=== PATIENT | female | born 1940 | race Caucasian/White ===

== ENCOUNTER 2017-03-24 09:29 | Emergency (ER) | payer MEDICARE, OTHER ==
--- NOTE | 2017-03-24 09:41 | ED ---
General Adult HPI - General Chief complaint: Head Injury Stated complaint: Fall 03/09 Time Seen by Provider: 03/24/17 09:41 Source: patient, RN notes reviewed, old records reviewed Mode of arrival: ambulatory Limitations: no limitations - History of Present Illness Initial comments: This is a 76-year-old female ER for reevaluation regarding headache. Patient has episodic headache the last 3 days, did have a fall about a week ago. Concern for head injury. No nausea vomiting no modifying factors for symptoms. Patient is not taking Motrin or Tylenol. No dizziness lightheadedness or weakness. No focal neurological deficit. - Related Data Home Medications Medication Instructions Recorded Confirmed Atorvastatin Calcium [Lipitor] 10 mg PO HS 11/11/15 03/24/17 Lisinopril [Prinivil] 10 mg PO BID 11/11/15 03/24/17 Thyroid Extract 90 mg PO DAILY 11/11/15 03/24/17 Biotin 5 mg PO DAILY 11/12/15 03/24/17 Cholecalciferol [Vitamin D3] 1,000 unit PO DAILY 11/12/15 03/24/17 Allergies Allergy/AdvReac Type Severity Reaction Status Date / Time clarithromycin [From Biaxin] Allergy Unknown Verified 03/24/17 09:48 Penicillins Allergy Anaphylaxis Verified 03/24/17 09:48 shellfish derived Allergy Anaphylaxis Verified 03/24/17 09:48 Sulfa (Sulfonamide Allergy Anaphylaxis Verified 03/24/17 09:48 Antibiotics) Review of Systems ROS Statement: Those systems with pertinent positive or pertinent negative responses have been documented in the HPI. ROS Other: All systems not noted in ROS Statement are negative. Past Medical History Past Medical History: Hyperlipidemia, Hypertension, Thyroid Disorder Additional Past Medical History / Comment(s): Patient denies any previous CVA or TIA in the past or previous DVT PE History of Any Multi-Drug Resistant Organisms: None Reported Past Surgical History: Orthopedic Surgery Additional Past Surgical History / Comment(s): L rotator cuff Additional Past Anesthesia/Blood Transfusion Reaction / Comment(s): diff. to arouse Past Psychological History: No Psychological Hx Reported Smoking Status: Never smoker Past Alcohol Use History: None Reported Past Drug Use History: None Reported - Past Family History Mother Family Medical History: Cancer General Exam - General Exam Comments Initial Comments: MH of 0, no focal neurological deficit, known nausea Limitations: no limitations General appearance: alert, in no apparent distress Head exam: Present: atraumatic, normocephalic, normal inspection Eye exam: Present: normal appearance, PERRL, EOMI. Absent: scleral icterus, conjunctival injection, periorbital swelling ENT exam: Present: normal exam, mucous membranes moist Neck exam: Present: normal inspection. Absent: tenderness, meningismus, lymphadenopathy Respiratory exam: Present: normal lung sounds bilaterally. Absent: respiratory distress, wheezes, rales, rhonchi, stridor Cardiovascular Exam: Present: regular rate, normal rhythm, normal heart sounds. Absent: systolic murmur, diastolic murmur, rubs, gallop, clicks GI/Abdominal exam: Present: soft, normal bowel sounds. Absent: distended, tenderness, guarding, rebound, rigid Extremities exam: Present: normal inspection, full ROM, normal capillary refill. Absent: tenderness, pedal edema, joint swelling, calf tenderness Back exam: Present: normal inspection Neurological exam: Present: alert, oriented X3, CN II-XII intact Psychiatric exam: Present: normal affect, normal mood Skin exam: Present: warm, dry, intact, normal color. Absent: rash Course Vital Signs 03/24/17 03/24/17 03/24/17 09:30 09:45 10:09 Temperature 96.8 F L Pulse Rate 60 67 Respiratory 16 20 Rate Blood Pressure 207/88 190/89 179/73 O2 Sat by Pulse 98 99 Oximetry - Reevaluation(s) Reevaluation #1: 03/24/17 11:37 Symptoms resolved Medical Decision Making - Medical Decision Making 76 female the ER for evaluation regarding headache, positive headache, patient has high blood pressure about blood pressures improved, patient did have a fall CT is negative. Patient will be discharged home for further blood pressure management - Radiology Data Radiology results: report reviewed (CT brain is negative for acute disease), image reviewed Disposition Clinical Impression: Closed head injury, Hypertensive urgency, Headache Disposition: HOME SELF-CARE Condition: Good Instructions: Acute Headache (ED), Hypertension (ED) Referrals: Naveed Viera MD [Primary Care Provider] - 1-2 days
[2017-03-24] MEDS ORDERED: PROCHLORPERAZINE 5 MG TAB PO STA (09:45)
[2017-03-24] MEDS ORDERED: cloNIDine HCL 0.2 MG TAB PO STA (09:45)
[2017-03-24] MEDS ORDERED: KETOROLAC 60 MG/2 ML VIAL IM STA (09:45)
--- NOTE | 2017-03-24 10:35 | CT ---
EXAMINATION TYPE: CT brain wo con DATE OF EXAM: 03/24/2017 COMPARISON: 11/12/2015 HISTORY: 76-year-old female headache, pt states she fell 3 weeks ago hitting front of head TECHNIQUE: Examination was done in axial plane without intravenous contrast. Coronal and sagittal r econstructions performed. CT DLP: 999.8 mGycm Automated exposure control for dose reduction was used. FINDINGS: There is no evidence of acute intracranial hemorrhage, acute ischemic changes, mass, mass-effect, or extra-axial fluid collection. There is no effacement of cerebral sulci or basal subarachnoid cister ns. There is no hydrocephalus. There is no midline shift. Esteves-white matter distinction is preserv ed. Mild patchy white matter hypodensities. Paranasal sinuses and mastoid air cells are well pneumatized. Orbits and globes are intact. No calvar ial fracture. IMPRESSION: No acute intracranial abnormality seen. Mild changes of chronic small vessel ischemic disease.
[2017-03-24 12:06] VITALS: BP 98/55; PULSE 73; RESP 14; TEMP 98.5
== END 2017-03-24 12:10 | disposition home or self-care (01) ==
LOC: EC 09:29
DX: S09.90XA Unspecified injury of head, initial encounter (principal); I16.0 Hypertensive urgency; R51 Headache; I10 Essential (primary) hypertension; E78.5 Hyperlipidemia, unspecified; E07.9 Disorder of thyroid, unspecified; Z79.899 Other long term (current) drug therapy; Z88.0 Allergy status to penicillin; Z88.1 Allergy status to other antibiotic agents; Z88.2 Allergy status to sulfonamides; Z91.013 Allergy to seafood; Z53.20 Procedure and treatment not carried out because of patient's decision for unspecified reasons; W18.39XA Other fall on same level, initial encounter
CPT/HCPCS: 70450; 99284

== ENCOUNTER 2019-03-06 08:33 | Day surgery (SDC) | payer MEDICARE, OTHER ==
[2019-03-04 12:39] VITALS: BMI 34.1
[~2019-03-06 08:33] MED LIST: LACTATED RINGERS 1,000 ML IV SCH; LIDOCAINE 1% 20 ML VIAL (10MG/ML) FOR IV START INTRADERMA PRN
[2019-03-06 09:09] VITALS: TEMP 97.3
[2019-03-06] MEDS ORDERED: LIDOCAINE 1% INJ 10MG/ML (20 ML MDV) ONE (09:19)
[2019-03-06] MEDS ORDERED: PROPOFOL 10 MG/ML 20 ML VIAL IV ONE (09:19)
--- NOTE | 2019-03-06 09:38 | P.PCN ---
Date of Procedure: 03/06/19 Procedure(s) Performed: BRIEF HISTORY: Patient is a 78-year-old, pleasant, female, scheduled for an upper endoscopy as a part of evaluation of epigastric fullness, and excessive belching for the last several years duration. She denies any heartburn. She was tried on various proton pump inhibitors in the past with no help. Presently and diet modification with some improvement in her symptoms.. PROCEDURE PERFORMED: Esophagogastroduodenoscopy with biopsy. PREOPERATIVE DIAGNOSIS: Epigastric fullness and excessive belching. IV sedation per anesthesia. PROCEDURE: After informed consent was obtained, the patient was brought into the endoscopy unit. IV sedation was administered by Anesthesia under continuous monitoring. Initially the Olympus GIF-140 video endoscope was inserted into the mouth. Esophagus intubated with moderate to severe difficulty secondary to cricopharyngeal dysfunction. It was gradually advanced into the stomach and duodenum and carefully examined. The bulb and the second part of the duodenum appeared normal. The scope at this time was withdrawn to the stomach, adequately insufflated with air, and upon careful examination, mucosa of the antrum had mild gastritis and biopsies were done from this area. The, body, cardia and the fundus appeared normal. Small gastric polyps were noted in the proximal body of the stomach which were also biopsied. The scope was then withdrawn into the esophagus. Small sliding type hiatal hernia noted. The GE junction was located at 39 cm from the incisors. The esophagus appeared normal. There were no erosions or ulcerations seen and the patient tolerated the procedure well. IMPRESSION: 1. Small hiatal hernia with no evidence of esophagitis or Camp's esophagus. 2. Mild gastritis and small gastric polyps. 3. Cricopharyngeal dysfunction RECOMMENDATIONS: The findings of this examination were discussed with the patient as well as a family. She will follow with the biopsy results. She was advised to continue with diet modification, small frequent meals and use [id number] H2 blockers as needed..
[2019-03-06 09:56] VITALS: BP 151/76; PULSE 56; RESP 18
== END 2019-03-06 10:25 | disposition home or self-care (01) ==
LOC: ORWHC2ENDO 08:33
PROVIDERS: ATTEND Internal Medicine Gastroenterology
DX: K29.50 Unspecified chronic gastritis without bleeding (principal); K44.9 Diaphragmatic hernia without obstruction or gangrene; K31.7 Polyp of stomach and duodenum; K22.8 Other specified diseases of esophagus; I10 Essential (primary) hypertension; E78.5 Hyperlipidemia, unspecified; M19.90 Unspecified osteoarthritis, unspecified site; K21.9 Gastro-esophageal reflux disease without esophagitis; Z79.890 Hormone replacement therapy; Z79.899 Other long term (current) drug therapy; Z88.1 Allergy status to other antibiotic agents; Z88.0 Allergy status to penicillin; Z88.2 Allergy status to sulfonamides; Z91.013 Allergy to seafood
CPT/HCPCS: 88305; 43239; J2001; J2704

== ENCOUNTER 2020-11-11 23:23 | Emergency (ER) | payer MEDICARE ==
--- NOTE | 2020-11-12 01:28 | ED ---
General Adult HPI - General Chief complaint: Upper Respiratory Infection Stated complaint: Weakness,Covid exposure Source: patient, RN notes reviewed Mode of arrival: ambulatory Limitations: no limitations - History of Present Illness Initial comments: Patient is a 80-year-old female that presents emergency department complaining of headache and general body aches. She did note that her tested positive and wasn't being admitted to the hospital today. She wanted to get tested for Covid just to make sure. She was in no apparent distress pain. She denied any chest pain shortness of breath nausea vomiting diarrhea constipation fever fatigue chills. - Related Data Home Medications Medication Instructions Recorded Confirmed Atorvastatin Calcium [Lipitor] 10 mg PO MOTUWETHFR 11/11/15 03/06/19 Biotin 10,000 mcg PO SUTUTHSA 03/04/19 03/06/19 Cholecalciferol [Vitamin D3 (25 5,000 unit PO DAILY 03/04/19 03/06/19 Mcg = 1000 Iu)] Levothyroxine Sodium 100 mcg PO DAILY 03/04/19 03/06/19 lisinopriL 20 mg PO BID 03/04/19 03/06/19 Allergies Allergy/AdvReac Type Severity Reaction Status Date / Time clarithromycin [From Biaxin] Allergy Unknown Verified 11/12/20 00:21 Penicillins Allergy Anaphylaxis Verified 11/12/20 00:21 shellfish derived Allergy Anaphylaxis Verified 11/12/20 00:21 Sulfa (Sulfonamide Allergy Anaphylaxis Verified 11/12/20 00:21 Antibiotics) Review of Systems ROS Statement: Those systems with pertinent positive or pertinent negative responses have been documented in the HPI. ROS Other: All systems not noted in ROS Statement are negative. Past Medical History Past Medical History: GERD/Reflux, Hyperlipidemia, Hypertension, Osteoarthritis (OA), Thyroid Disorder Additional Past Medical History / Comment(s): Patient denies any previous CVA or TIA in the past or previous DVT PE History of Any Multi-Drug Resistant Organisms: None Reported Past Surgical History: Breast Surgery, Orthopedic Surgery Additional Past Surgical History / Comment(s): L rotator cuff, cysts removed from right breast. Past Anesthesia/Blood Transfusion Reactions: Postoperative Nausea & Vomiting (PONV) Additional Past Anesthesia/Blood Transfusion Reaction / Comment(s): Hx difficult to arouse. Past Psychological History: No Psychological Hx Reported Smoking Status: Never smoker Past Alcohol Use History: None Reported Past Drug Use History: None Reported - Past Family History Mother Family Medical History: Cancer General Exam Limitations: no limitations General appearance: alert, in no apparent distress, obese Head exam: Present: atraumatic, normocephalic, normal inspection Eye exam: Present: normal appearance, PERRL, EOMI. Absent: scleral icterus, conjunctival injection, periorbital swelling Neck exam: Present: normal inspection. Absent: tenderness, meningismus, lymphadenopathy Respiratory exam: Present: normal lung sounds bilaterally. Absent: respiratory distress, wheezes, rales, rhonchi, stridor Cardiovascular Exam: Present: regular rate, normal rhythm, normal heart sounds. Absent: systolic murmur, diastolic murmur, rubs, gallop, clicks GI/Abdominal exam: Present: soft, normal bowel sounds. Absent: distended, tenderness, guarding, rebound, rigid Extremities exam: Present: normal inspection, full ROM, normal capillary refill. Absent: tenderness, pedal edema, joint swelling, calf tenderness Neurological exam: Present: alert, oriented X3, CN II-XII intact Psychiatric exam: Present: normal affect, normal mood Skin exam: Present: warm, dry, intact, normal color. Absent: rash Course Vital Signs 11/12/20 00:19 Temperature 98.7 F Pulse Rate 83 Respiratory 20 Rate Blood Pressure 140/86 O2 Sat by Pulse 93 L Oximetry Medical Decision Making - Medical Decision Making 72-year-old female complaining of headache and general aches, exposed to Covid on 11/06/20 is getting admitted to hospital today. Covid test ordered, Covid test was positive. Case discussed with Dr. Tamayo, patient can discharge home with conservative management. Crit return parameters. - Lab Data Lab Results 11/12/20 Range/Units 00:32 Coronavirus (PCR) Detected A (Not Detectd) Disposition Clinical Impression: COVID-19 Disposition: HOME SELF-CARE Condition: Stable Instructions (If sedation given, give patient instructions): Upper Respiratory Infection (ED), Coronavirus Disease 2019 (COVID-19) Additional Instructions: Please return to the Emergency Department if symptoms worsen or any other concerns. These follow-up with primary care in 3-5 days. Per CBC guidelines quarantine for 10-14 days from onset of symptoms. Take [id number] anti-inflammatories for symptomatically control fever and aches and pains. Increase fluids and rest. If symptoms worsen please return to the emergency room. Is patient prescribed a controlled substance at d/c from ED?: No Referrals: Naveed Viera MD [Primary Care Provider] - 1-2 days Time of Disposition: 01:28
[2020-11-12 01:35] VITALS: BP 141/65; PULSE 81; RESP 22; TEMP 98.1
== END 2020-11-12 01:33 | disposition home or self-care (01) ==
LOC: EC 23:23
DX: U07.1 COVID-19 (principal); I10 Essential (primary) hypertension; M19.90 Unspecified osteoarthritis, unspecified site; K21.9 Gastro-esophageal reflux disease without esophagitis; E78.5 Hyperlipidemia, unspecified; Z88.0 Allergy status to penicillin
CPT/HCPCS: 87635; 99284

== ENCOUNTER → 2021-03-10 | Outpatient (CLI) | payer MEDICARE ==
--- NOTE | 2021-03-10 17:00 | ECHOF ---
Referral Reason:R60.9 edema MEASUREMENTS -------- HEIGHT: 160.0 cm WEIGHT: 92.5 kg BP: IVSd: 1.2 cm (0.6 - 1.1) LVIDd: 4.1 cm (3.9 - 5.3) LVPWd: 1.3 cm (0.6 - 1.1) IVSs: 1.6 cm LVIDs: 2.9 cm LVPWs: 2.0 cm LAESV Index (A-L): 27.00 ml/m Ao Diam: 2.4 cm (2.0 - 3.7) AV Cusp: 1.9 cm (1.5 - 2.6) LA Diam: 3.4 cm (2.7 - 3.8) MV EXCURSION: 15.279 mm (> 18.000) MV EF SLOPE: 57 mm/s (70 - 150) EPSS: 0.4 cm MV E Johnny: 0.29 m/s MV DecT: 273 ms MV A Johnny: 0.79 m/s MV E/A Ratio: 0.37 RAP: 5.00 mmHg RVSP: 24.98 mmHg FINDINGS -------- Sinus rhythm. This was a technically good study. LV size, wall thickness and systolic function are normal, with an EF greater than 55%. The left johnathan tricular size is normal. The right ventricle is normal in size. The left atrial size is normal. The right atrial size is normal. The aortic valve is trileaflet, and appears structurally normal. No aortic stenosis or regurgitation. Mild mitral regurgitation is present. Mild tricuspid regurgitation present. Right ventricular systolic pressure is normal at < 35 mmHg. There is no pulmonic regurgitation present. There is no pericardial effusion. CONCLUSIONS -------- 1. LV size, wall thickness and systolic function are normal, with an EF greater than 55%. 2. The left ventricular size is normal. 3. The right ventricle is normal in size. 4. The left atrial size is normal. 5. The right atrial size is normal. 6. The aortic valve is trileaflet, and appears structurally normal. No aortic stenosis or regurgitati on. 7. Mild mitral regurgitation is present. 8. Mild tricuspid regurgitation present. 9. Right ventricular systolic pressure is normal at < 35 mmHg. 10. There is no pulmonic regurgitation present. 11. There is no pericardial effusion. IMMUNOCHEMIST: Maria Elena Beyer RDCS
== END | disposition home or self-care (01) ==
LOC: RADECHMAIN 11:08
PROVIDERS: ATTEND Internal Medicine Geriatric Medicine
DX: I08.1 Rheumatic disorders of both mitral and tricuspid valves (principal)
CPT/HCPCS: 93306

== ENCOUNTER → 2021-06-15 | Outpatient (CLI) | payer MEDICARE ==
--- NOTE | 2021-06-15 12:44 | FL ---
EXAMINATION TYPE: FL barium swallow DATE OF EXAM: 06/15/2021 CLINICAL HISTORY: Dysphasia. Food getting stuck in upper esophagus for years more severe currently. TECHNIQUE: A double contrast esophagram is performed utilizing air and barium. A total of 27 second s of fluoroscopic time was utilized during procedure and 52 images obtained COMPARISON: Prior esophagram August 01, 2016 FINDINGS: The esophagus shows some dysmotility with abnormal secondary contractions. Stable prominenc e of the cardiac cricopharyngeal muscle. No diverticulum. Small size sliding-type hiatal hernia. No f ocal stricture . No significant gastroesophageal reflux was seen during real time performance of this study. IMPRESSION: New mild esophageal dysmotility. No obstructing mass or stricture identified. Small slid ing-type hiatal hernia also noted on today's study.
== END | disposition home or self-care (01) ==
LOC: RADUSWWP 09:49
PROVIDERS: ATTEND Otolaryngology
DX: K22.4 Dyskinesia of esophagus (principal); K44.9 Diaphragmatic hernia without obstruction or gangrene
CPT/HCPCS: 74220

== ENCOUNTER → 2022-03-03 | Outpatient (CLI) | payer MEDICARE ==
[2022-03-03 12:09] LABS: Partial Thromboplastin Time 25.7 sec (22.0-30.0); Prothrombin Time 10.5 sec (9.0-12.0)
[2022-03-03 17:48] LABS: MCH 30.6 pg (27.0-32.0); MCHC 31.8 g/dL (32.0-37.0); MCV 96.1 fL (80.0-97.0); Mean Platelet Volume 10.3 fL (9.5-12.2); NRBC Per 100 WBC 0 /100 WBCS (0.0-0.0); Platelet Count 170 X 10*3/uL (140-440); RBC 4.58 X 10*6/uL (4.10-5.20); RDW 12.4 % (11.5-14.5); WBC 4.26 X 10*3/uL (4.50-10.00)
[2022-03-03 17:58] LABS: African American GFR (CKD) 73.6 (60.0-200.0); Albumin 4.3 g/dL (3.8-4.9); Albumin/Globulin Ratio 2.41 (1.60-3.17); BUN/Creat Ratio 14.17 Ratio (12.00-20.00); Blood Urea Nitrogen 12.3 mg/dL (9.0-27.0); Calcium 9.9 mg/dL (8.7-10.3); Carbon Dioxide 26.5 mmol/L (20.0-27.5); Globulin 1.8 g/dL (1.6-3.3); Non-African American GFR(CKD) 63.5 (60.0-200.0); Potassium 4.8 mmol/L (3.5-5.5); Total Bilirubin 0.5 mg/dL (0.30-1.20); Total Protein 6.1 g/dL (6.2-8.2)
[2022-03-03 19:44] LABS: Appearance,Urine Clear (Clear); Bilirubin,Urine Negative (Negative); Blood,Urine Negative (Negative); Color,Urine Yellow (Yellow); Ketones,Urine Negative (Negative); Nitrite,Urine Negative (Negative); PH, Urine 6.5 (5.0-8.0); Specific Gravity,Urine 1.005 (1.001-1.030); Urobilinogen,Urine 0.2 (0.2,1.0)
== END | disposition home or self-care (01) ==
LOC: LABPAT 10:53
PROVIDERS: ATTEND Orthopaedic Surgery
DX: Z01.818 Encounter for other preprocedural examination (principal); I49.1 Atrial premature depolarization; R94.31 Abnormal electrocardiogram [ECG] [EKG]
CPT/HCPCS: 80053; 81003; 85027; 85610; 85730; 87070; 93005

== ENCOUNTER 2022-03-29 09:13 | Day surgery (SDC) | payer MEDICARE ==
[~2022-03-29 09:13] MED LIST changes: +ACETAMINOPHEN TAB 500 MG TAB PO PRN; +DEXAMETHASONE SOD PHOSPHATE 4 MG/ML 1 ML VIAL IV ONE; +GABAPENTIN 300 MG CAP PO PRN; -LACTATED RINGERS 1,000 ML IV SCH; -LIDOCAINE 1% 20 ML VIAL (10MG/ML) FOR IV START INTRADERMA PRN; +MELOXICAM 7.5 MG TAB PO PRN; +ONDANSETRON 4 MG/2 ML VIAL IVP ONE; +TRANEXAMIC ACID IN NACL,ISO-OS 1,000 MG in SALINE 1 100ML.BAG IVPB PRN
[2022-03-29] MEDS: LACTATED RINGERS 1,000 ML IV SCH (09:55)
[2022-03-29] MEDS ORDERED: MIDAZOLAM 2 MG/2 ML VIAL IV ONE (10:03)
[2022-03-29] MEDS ORDERED: fentaNYL (PF) 50 MCG/ML 2 ML AMP IV ONE (10:03)
--- NOTE | 2022-03-29 10:56 | P.ANPRN ---
Procedure Note - Anesthesia - Nerve Block Performed Left Adductor Canal Infusion Time Out Performed: Yes (1003) Date of Procedure: 03/29/22 Procedure Start Time: 10:04 Procedure Stop Time: 10:11 Location of Patient: PreOp Indication: Acute Post-Operative Pain, Requested by Surgeon Specifically requested for management of pain by DrCleopatra: Norman Martínez Sedation Type: Sedate with meaningful contact maintained Preparation: Sterile Prep, Sterile Dressing Position: Supine Catheter Depth at Skin (cm): 8 Catheter: Indwelling Needle Types: Pajunk Needle Gauge: Other (see comment) (16) Ultrasound used to visualize needle placement: Yes Ultrasound used to observe medication spread: Yes Injectate: 0.5% Ropivacaine (see comment for volume) (30cc) Blood Aspirated: No Pain Paresthesia on Injection Noted: No Resistance on Injection: Normal Image Stored and Saved: Yes Events: Uneventful and Well Tolerated
--- NOTE | 2022-03-29 10:58 | P.ANPRN ---
Procedure Note - Anesthesia - Nerve Block Performed Left iPack Single Time Out Performed: Yes (1003) Date of Procedure: 03/29/22 Procedure Start Time: 10:12 Procedure Stop Time: :17 Location of Patient: PreOp Indication: Acute Post-Operative Pain, Requested by Surgeon Specifically requested for management of pain by DrCleopatra: Norman Martínez Sedation Type: Sedate with meaningful contact maintained Preparation: Sterile Prep Position: Supine Catheter: None Needle Types: Pajunk Needle Gauge: 21 Ultrasound used to visualize needle placement: Yes Ultrasound used to observe medication spread: Yes Injectate: 0.5% Ropivacaine (see comment for volume) (15cc +5cc nacl pf) Blood Aspirated: No Pain Paresthesia on Injection Noted: No Resistance on Injection: Normal Image Stored and Saved: Yes Events: Uneventful and Well Tolerated
[2022-03-29] MEDS ORDERED: MIDAZOLAM 2 MG/2 ML VIAL ONE (11:07)
[2022-03-29] MEDS ORDERED: PHENYLEPHRINE-0.9% NACL SYG 1,000 MCG/10 ML SYRINGE ONE (11:07)
[2022-03-29] MEDS ORDERED: ROPIVACAINE 5 MG/ML 30 ML VIAL ONE (11:07)
[2022-03-29] MEDS ORDERED: fentaNYL (PF) 50 MCG/ML 2 ML AMP ONE (11:07)
[2022-03-29] MEDS ORDERED: SODIUM CHLORIDE 0.9% (PF) 10 ML VIAL ONE (11:07)
[2022-03-29] MEDS ORDERED: PROPOFOL 10 MG/ML 20 ML VIAL IV ONE (11:07)
[2022-03-29] MEDS ORDERED: TRANEXAMIC ACID IN NACL,ISO-OS 1,000 MG/100 ML BAG ONE (11:07)
--- NOTE | 2022-03-29 12:42 | P.OP ---
Date of Procedure: 03/29/22 Preoperative Diagnosis: Severe osteoarthritis left knee Postoperative Diagnosis: Severe osteoarthritis left knee Procedure(s) Performed: Left total knee arthroplasty Implants: [employer] II CR Oxinium cruciate retaining femoral component size 6, left [employer] nonporous tibial baseplate size 4, left [employer] II, XLPE Deep Dished articular insert, size 9 mm, Size 3- 4, left [employer] Aleah II resurfacing patellar component, oval, 32 mm All components were cemented using Simplex P bone cement The articulation is Oxinium on polyethylene Anesthesia: spinal Surgeon: Norman Martínez Beam Worker #1: Bhargav Zaldivar Estimated Blood Loss (ml): 100 Pathology: other (Bone and cartilage) Condition: stable Disposition: PACU Indications for Procedure: After failure of conservative treatment we discussed the surgical and nonsurgical treatment options at length. Patient wishes to proceed with a total knee arthroplasty. Complications specific to this procedure were discussed at length, including but not limited to infection, bleeding, stiffness, and nerve injury. Covid-19 was also discussed at length with the patient, and they are aware of the current policies and procedures. The patient was given the option of delaying surgery, but they elect to proceed knowing these risks. Patient is aware of all these complications and informed consent was obtained Operative Findings: The operative findings are consistent with severe osteoarthritis of the left knee Description of Procedure: Patient was seen in the preoperative area and the consent was reviewed and the operative site was marked with a skin marker. The patient verified the procedure and the operative site. An adductor canal pain catheter and an iPACK block was placed by anesthesia in the preoperative area. The patient was then brought to the operating room and given preoperative antibiotics intravenously. A gram of transexamic acid was given intravenously. A spinal anesthetic was administered by the anesthesia department. A tourniquet was placed on the upper thigh and the lower extremity was prepped with chlorhexidine and draped in usual sterile fashion. A universal timeout was then performed which confirmed the patient's name, surgical site, ALLERGIES, and consent. The lower extremity was then exsanguinated and tourniquet was inflated to 250 mmHg. A standard anterior midline approach to the knee was performed. The skin and subcutaneous tissue were sharply dissected down to the patellar tendon. A medial parapatellar arthrotomy was then performed. The knee was then extended, the patellar was everted, and the knee was again flexed. The infra-patellar fat pad was removed in order to enhance exposure. The anterior horns of both menisci were excised, and a release was performed to the posterior medial aspect of the knee. On gross visual inspection, there was complete loss of articular cartilage in the medial and patellofemoral joint spaces. There was also significant cartilage damage in the lateral compartment. There were multiple periarticular osteophytes globally about the knee which were then removed with a Ronguer. The femoral canal was then opened with the 9.5 mm intramedullary drill. The 8 mm intramedullary brynn was then inserted into the femoral canal with the distal femoral cutting guide set for 5 of valgus. The distal femoral cutting block was then pinned in place. The intramedullary brynn was then removed, and the distal femur was then cut. The cutting block was then removed and the cut was checked for symmetry. The resected bone was then measured to confirm the appropriate distal femoral resection. Next, the sizing guide was then placed and set for 3 external rotation based off of the epicondylar axis and Whitesides line. Pins were then placed and the drill holes, and the femur was sized with the sizing stylus. The pins were then removed, and the sizing guide was then removed. The spikes of the femoral block was then placed into the predrilled holes, and malleted into place. Two 45 mm pins were then placed into the fixation holes on the cutting block. An priscilla wing was then used to ensure there would be no notching with the anterior cut. The anterior condyles were cut without notching. The anterior chord cut was then performed, followed by the posterior cut, posterior chamfer cut, and the anterior chamfer cut. The collateral ligaments were protected during the entire process. The cutting block was then removed. Any remaining bone and osteophytes were removed from the femur with a Ronguer. The femoral canal was plugged with autologous bone. Attention was then directed to the tibia. The remaining ACL was removed with a Ronguer, and the tibia was then gently subluxed forward with a large bent knee retractor. Any remaining menisci were excised. The posterior lateral corner was cauterized in order to coagulate the lateral geniculate artery. The extra medullary tibial cutting guide was then placed, set for the appropriate rotation, slope, and depth of resection. The proximal tibia cutting guide was then pinned in place. Proximal tibia was then cut and sized. The femoral trial was placed. A narrow saw blade was then used to remove the anterior intracondylar femoral bone. The CR notch trial was then placed. The tibial trial was placed with the appropriate-sized insert. The knee was able to fully extend and flex to 130 and was stable throughout all range of motion. The knee was then extended and the patella was everted. Patella was then measured, and then using an osteotomy guide, the patella was cut at the appropriate level. The patella was then measured and drilled and the patella trial was then placed. The knee was then taken through range of motion with the patella trial and the patella tracked normally using the no thumbs technique. The knee was then extended patella trial was then removed and the patella was everted. Knee was then flexed and lug holes were drilled through the femoral trial and the femoral trial was then removed. The tibial was then re-exposed, and the tibial broach guide was then pinned in place after it was set for the appropriate rotation to allow for the most coverage without overhang. The tibia was then reamed and broached. The cut surfaces of bone were then irrigated with pulsatile lavage. The knee was also irrigated with Irrisept solution. The components were then opened, the cement was mixed, and the components were then cemented in place. The cement was allowed to harden with the knee in full extension. After the cemented hardened, the tourniquet was released and hemostasis was obtained. A second gram of transexamic acid was given intravenously. The knee was again irrigated. The knee was again taken through range of motion and found to be stable throughout all range of motion of 0-130, and the patella tracked normally. The fascia was then closed with 0 Vicryl followed by #2 strata fix suture. The subcutaneous tissue was closed with 3-0 Vicryl and 3-0 strata fix. Exofin glue was used for the skin and placed with the knee in flexion. After the glue had dried, and Optafoam silver impregnated dressing was applied. The patient was then transferred to recovery room in stable condition. The respiratory therapist assistant VICKI Wallis was required due the complexity surgery and the need for a skilled surgical nurse. She assisted in positioning, draping, retraction, and closure of the wound.
[2022-03-29] MEDS ORDERED: IV FLUID CONTINUATION 1,000 ML IV ONE ×3 (13:18)
[2022-03-29] MEDS ORDERED: HYDROcodone/APAP 5-325MG 1 EACH TAB PO PRN (13:33)
[2022-03-29] MEDS ORDERED: hydrOXYzine pamoate 25 MG CAP PO PRN (13:33)
[2022-03-29] MEDS ORDERED: TEMAZEPAM 15 MG CAP PO PRN (13:33)
[2022-03-29] MEDS ORDERED: bisacodyL 10 MG SUPP RECTAL PRN (13:33)
[2022-03-29] MEDS ORDERED: NALOXONE 0.4 MG/ML 1 ML VIAL IV PRN (13:33)
[2022-03-29] MEDS ORDERED: MAGNESIUM HYDROXIDE 2,400 MG/10 ML CUP PO PRN (13:33)
[2022-03-29] MEDS ORDERED: HYDROmorphone 0.5 MG/0.5 ML SYRINGE IVP PRN ×3 (13:33)
[2022-03-29] MEDS ORDERED: ONDANSETRON 4 MG/2 ML VIAL IVP PRN (13:33)
[2022-03-29 13:45] LABS: Glucose,Whole Blood 102 mg/dL (70-110)
--- NOTE | 2022-03-29 13:49 | XR ---
EXAMINATION TYPE: XR knee limited LT DATE OF EXAM: 03/29/2022 CLINICAL HISTORY: Postoperative evaluation Two views of the left knee are submitted. Identified are changes of total knee arthroplasty with fem oral and tibial components appearing well seated. Postsurgical soft tissue changes are noted. Align ment is anatomic.
[2022-03-29] MEDS ORDERED: ROPIVACAINE 0.2%-NS ON-Q PUMP 2 MG/ML EACH MISCELLANE ONE (13:53)
[2022-03-29] MEDS: HYDROmorphone 0.5 MG/0.5 ML SYRINGE IVP PRN ×2 (13:55→14:20)
[2022-03-29] MEDS ORDERED: KETOROLAC 15 MG/ML 1 ML VIAL IVP ONE (13:58)
[2022-03-29] MEDS: SODIUM CHLORIDE 0.9% 1,000 ML IV SCH (15:00)
[2022-03-29] MEDS ORDERED: ATORVASTATIN 10 MG TAB PO SCH ×2 (17:15→21:00)
[2022-03-29] MEDS ORDERED: TOBRAMYCIN 0.3% OPHTH DROPS 5 ML BTL RIGHT EYE SCH (18:00)
[2022-03-29] MEDS: lisinopriL 20 MG TAB PO SCH (20:43)
[2022-03-29] MEDS: FAMOTIDINE 20 MG TAB PO SCH (20:43)
[2022-03-29] MEDS: HYDROcodone/APAP 5-325MG 1 EACH TAB PO PRN (20:44)
[2022-03-29] MEDS ORDERED: SENNOSIDES-DOCUSATE SODIUM 1 EACH TAB PO SCH (21:00)
[2022-03-30] MEDS ORDERED: LEVOTHYROXINE 100 MCG TAB PO SCH (06:30)
[2022-03-30] MEDS: LACTATED RINGERS 1,000 ML IV SCH (07:05)
[2022-03-30] MEDS: HYDROcodone/APAP 5-325MG 1 EACH TAB PO PRN (07:33)
[2022-03-30] MEDS: lisinopriL 20 MG TAB PO SCH (07:34)
[2022-03-30] MEDS: FAMOTIDINE 20 MG TAB PO SCH (07:34)
[2022-03-30 08:10] VITALS: BP 167/74; PULSE 70; RESP 18; TEMP 98.8
[2022-03-30] MEDS ORDERED: OXYBUTYNIN XL 5 MG TAB.ER.24 PO SCH (09:00)
[2022-03-30] MEDS ORDERED: MULTIVITAMINS, THERA 1 EACH TAB PO SCH ×2 (09:00→12:00)
[2022-03-30] MEDS ORDERED: CHOLECALCIFEROL 125 MCG (5000 IU) TABLET PO SCH (09:00)
[2022-03-30] MEDS ORDERED: ASPIRIN 325 MG TAB PO SCH (09:00)
[2022-03-30] MEDS ORDERED: FAMOTIDINE 20 MG TAB PO SCH (09:00)
[2022-03-30] MEDS ORDERED: LORATADINE 10 MG TAB PO SCH (09:00)
[2022-03-30] MEDS: SODIUM CHLORIDE 0.9% 1,000 ML IV SCH (09:16)
[2022-03-30 09:24] LABS: Basophils # (A) 0.01 X 10*3/uL (0.00-0.10); Basophils % (A) 0.1 %; Eosinophils # (A) 0 X 10*3/uL (0.04-0.35); Eosinophils % (A) 0 %; HCT 36.5 % (37.2-46.3); HGB 12.4 g/dL (12.0-15.0); Immature Grans, Automated 0.5 %; Lymphocytes % (A) 14.6 %; MCH 32.1 pg (27.0-32.0); MCV 94.6 fL (80.0-97.0); Mean Platelet Volume 10.6 fL (9.5-12.2); Monocytes # (A) 0.86 X 10*3/uL (0.20-1.00); Monocytes % (A) 10.4 %; NRBC Per 100 WBC 0 /100 WBCS (0.0-0.0); Neutrophils # (A) 6.12 X 10*3/uL (1.80-7.70); Neutrophils % (A) 74.4 %; Platelet Count 150 X 10*3/uL (140-440); RBC 3.86 X 10*6/uL (4.10-5.20); RDW 12.6 % (11.5-14.5); WBC 8.23 X 10*3/uL (4.50-10.00)
--- NOTE | 2022-03-30 09:53 | P.DS ---
Providers Date of admission: 03/29/2022 Expected date of discharge: 03/30/22 Attending physician: Norman Martínez Consults: 03/29/22 13:33 Consult Physician Routine Consulting Provider: Naveed Viera Reason/Comments: Postoperative medical management Do you want consulting provider notified?: Yes Primary care physician: Naveed Viera - Discharge Diagnosis(es) (1) Hypertension Current Visit: Yes Status: Acute (2) Hypothyroidism Current Visit: Yes Status: Acute (3) Hyperlipidemia Current Visit: Yes Status: Acute (4) Left knee pain Current Visit: Yes Status: Acute (5) Osteoarthritis of left knee Current Visit: Yes Status: Acute (6) Status post total left knee replacement Current Visit: Yes Status: Acute Hospital Course: This is a pleasant 81-year-old female who presented with left knee severe osteoarthritis who failed outpatient conservative therapy. She was admitted for a left total knee arthroplasty performed by Dr. Norman Martínez. The patient tolerated the procedure well and did well postoperatively. Her pain has been well-controlled. She has been ambulating with the assistance of a walker. She has some unsteadiness in her gait but feels better with the assistance of a walker. She continues to have an On-Q pain pump intact. She is eating and voiding without difficulty. She feels she is ready for discharge today. She states her daughter will be with her at all times following discharge. Condition on day of discharge stable. Patient will be discharged home. Patient was cleared preoperatively for surgery by Dr. Viera. Patient currently denies any nausea, vomiting, fever, or chills. Patient may shower Optifoam dressing intact. Patient may remove Optifoam dressing in 7 days and shower without a dressing at that time. Patient is encouraged to elevate and apply ice over the left knee for comfort support as needed. She is encouraged to utilize a walker to aid in ambulation. She may weight-bear as tolerated on the left lower extremity with the assistance of a walker. MAPS reviewed yesterday. An "Opiod Start Talking" Form has been signed and placed in the patient's chart. A prescription has been written for Savery 5 mg/325 mg 1-2 tabs every 6 hours as needed for pain, dispensed #32. Patient is also given prescriptions for Senokot-S as needed for constipation, Zofran as needed for nausea, Celebrex 200 mg, and aspirin 325 mg. Patient should take aspirin 325 mg 1 tab by mouth twice a day until completion of the prescription. Prescription medications were sent to the patient's preferred regular pharmacy. Patient's other medical diagnoses include hypertension, hypothyroidism, and hyperlipidemia. Physical Exam Total Knee Arthroplasty: Status post surgical day number 1 Patient is awake, alert, and oriented 3 Vital signs stable Good chest excursion with deep inspiration and expiration No signs or symptoms of DVT; no calf pain Dressing over the left knee is clean, dry, and intact; no erythema, purulence, or signs of infection Patient has full foot and ankle motion without difficulty bilateral lower extremities Dorsiflexion, plantar flexion, and extensor hallucis longus positive sustained bilaterally Neurovascular status left lower extremity intact Capillary refill lower extremity is bilaterally less than 2 seconds Procedures: Left total knee arthroplasty Patient Condition at Discharge: Stable Plan - Discharge Summary Discharge Rx Participant: Yes New Discharge Prescriptions: New Aspirin 325 mg PO BID #60 tab Celecoxib [CeleBREX] 200 mg PO DAILY PRN #30 cap PRN Reason: Pain Ondansetron [Zofran] 4 mg PO Q6HR PRN #30 tab PRN Reason: Nausea HYDROcodone/APAP 5-325MG [Savery 5] 1 - 2 each PO Q6HR PRN #32 tab PRN Reason: Pain Sennosides-Docusate Sodium [Senokot-S] 1 tab PO BID PRN #60 tablet PRN Reason: Constipation No Action Atorvastatin Calcium [Lipitor] 10 mg PO MOTUWETHFR Cholecalciferol [Vitamin D3 (25 Mcg = 1000 Iu)] 5,000 unit PO DAILY Levothyroxine Sodium 100 mcg PO DAILY lisinopriL 20 mg PO BID Tolterodine ER [Detrol LA] 2 mg PO DAILY Cephalexin [Keflex] 500 mg PO Q8HR Tobramycin 0.3% Ophth Soln [Tobrex 0.3% Ophth Soln] 1 drop RIGHT EYE QID Loratadine [Claritin] 10 mg PO DAILY Zinc 50 mg PO DAILY Multivitamins, Thera [Multivitamin (formulary)] 1 tab PO DAILY Famotidine [Pepcid] 20 mg PO BID Ubidecarenone [Co Q-10] 400 mg PO DAILY Discharge Medication List Atorvastatin Calcium [Lipitor] 10 mg PO MOTUWETHFR 11/11/15 [History] Cholecalciferol [Vitamin D3 (25 Mcg = 1000 Iu)] 5,000 unit PO DAILY 03/04/19 [History] Levothyroxine Sodium 100 mcg PO DAILY 03/04/19 [History] lisinopriL 20 mg PO BID 03/04/19 [History] Cephalexin [Keflex] 500 mg PO Q8HR 03/22/22 [History] Famotidine [Pepcid] 20 mg PO BID 03/22/22 [History] Loratadine [Claritin] 10 mg PO DAILY 03/22/22 [History] Multivitamins, Thera [Multivitamin (formulary)] 1 tab PO DAILY 03/22/22 [History] Tobramycin 0.3% Ophth Soln [Tobrex 0.3% Ophth Soln] 1 drop RIGHT EYE QID 03/22/22 [History] Tolterodine ER [Detrol LA] 2 mg PO DAILY 03/22/22 [History] Ubidecarenone [Co Q-10] 400 mg PO DAILY 03/22/22 [History] Zinc 50 mg PO DAILY 03/22/22 [History] Aspirin 325 mg PO BID #60 tab 03/29/22 [Rx] Celecoxib [CeleBREX] 200 mg PO DAILY PRN #30 cap 03/29/22 [Rx] HYDROcodone/APAP 5-325MG [Savery 5] 1 - 2 each PO Q6HR PRN #32 tab 03/29/22 [Rx] Ondansetron [Zofran] 4 mg PO Q6HR PRN #30 tab 03/29/22 [Rx] Sennosides-Docusate Sodium [Senokot-S] 1 tab PO BID PRN #60 tablet 03/29/22 [Rx] Follow up Appointment(s)/Referral(s): [facility] [[facility]] - 1-2 Days ([facility] will call you to schedule your in home physical therapy visits. ) Norman Martínez DO [Doctor of Osteopathic Medicine] - 2 Weeks Activity/Diet/Wound Care/Special Instructions: 1. Patient may shower without a dressing intact over the left knee if the surgical site remains clean and dry over the next 72 hours 2. Patient may elevate and apply ice for comfort support of the left knee as needed 3. Patient is encouraged to use a walker to aid in ambulation as needed 4. Patient may weight-bear as tolerated on the left lower extremity while avoiding excessive activities with the right lower extremity 5. Take medications as prescribed 6. Keep surgical site clean and dry 7. Patient will follow up with Dr. Norman Martínez in 2 weeks for further evaluation at the office; patient may call [facility] at [phone] with any questions or concerns Discharge Disposition: HOME SELF-CARE
--- NOTE | 2022-03-30 14:29 | P.CONS ---
History of Present Illness - Reason for Consult Consult date: 03/30/22 Medical management, postop left knee arthroplasty - History of Present Illness This is a pleasant 81-year-old female who follows with Dr. Viera in the outpatient setting and was admitted under orthopedic services for left knee arthroplasty with Dr. Martínez postop day #1. Patient does have a past medical history hypertension, hyperlipidemia, osteoarthritis, hypothyroidism, gastroesophageal reflux disease. Patient is maintained on blood pressure medication and blood pressures have been controlled and blood medications were already resumed postoperatively and recommend to to continue with current medication regimen and follow-up closely with the memory care provider in the outpatient setting. Patient's postoperative site dressing on the left knee is dry and intact and noted pain pump. Patient reports she has been up and walking and tolerating the pain and will be going home and daughter will be visiting and staying with her and discharge. Patient with an incentive spirometer at the bedside and encourage the patient continue using at least 10 times every hour while awake even in the home setting. Patient reports the passing gas although no bowel movement as of yet and is urinating with no difficulties. Review Of Systems: Constitutional: No fever, no chills, no night sweats. No weight change. No weakness, fatigue or lethargy. No daytime sleepiness. EENT: No headache. No blurred vision or double vision, no loss of vision. No loss of Hearing, no ringing in the ears, no dizziness. No nasal drainage or congestion. No epistaxis. No sore throat. Lungs: No shortness of breath, cough, no sputum production. No wheezing. Cardiovascular: No chest pain, no lower extremity edema. No palpitations. No paroxysmal nocturnal dyspnea. No orthopnea. No lightheadedness or dizziness. No syncopal episodes. Abdominal: No abdominal pain. No nausea, vomiting. No diarrhea. No constipation. No bloody or tarry stools.. No loss of appetite. Genitourinary: No dysuria, increased frequency, urgency. No urinary retention. Musculoskeletal: No myalgias. No muscle weakness, no gait dysfunction, no frequent falls. No back pain. No neck pain. Reports some left knee pain that is manageable Integumentary: No wounds, no lesions. No rash or pruritus. No unusual bruising. No change in hair or nails. Neurologic: No aphasia. No facial droop. No change in mentation. No head injury. No headache. No paralysis. No paresthesia. Psychiatric: No depression. No anxiety. No mood swings. Endocrine: No abnormal blood sugars. No weight change. No excessive sweating or thirst. No cold intolerance. PHYSICAL EXAMINATION: GENERAL: The patient is alert and oriented x4, Well developed, well nourished. HEENT: Pupils are round and equally reacting to light. EOMI. no scleral icterus. No conjunctival pallor. Normocephalic, atraumatic. No pharyngeal erythema. No thyromegaly. CARDIOVASCULAR: S1 and S2 muffled PULMONARY: diminished breath sounds bilaterally with no wheezing or rhonchi note d. ABDOMEN: soft. Nontender on exam. obese. non-distended, normoactive bowel sounds. No palpable organomegaly. MUSCULOSKELETAL: No joint swelling or deformity. EXTREMITIES: No cyanosis, clubbing, or pedal edema. Left lower extremity knee postop dressing is dry and intact and there is an epidural pain pump noted. NEUROLOGICAL: Gross neurological examination did not reveal any focal deficits. SKIN: No rashes. Assessment: Osteoarthritis status post left total knee arthroplasty, postop day #1 Hypertension Hyperlipidemia Hypothyroidism Gastroesophageal reflux disease GI prophylaxis DVT prophylaxis Full code Plan: Recommend to continue with current medications and management per orthopedic services. Patient has been up and working with physical therapy and doing well and will be going home and daughter will be staying with her for a few days to help. Patient has been cleared by orthopedics for discharge today status post left total knee arthroplasty. Patient follows with Dr. Viera in the outpatient setting and encourage the patient to follow-up as scheduled. Patient did go to him for preop clearance for the surgery. Currently vital signs are stable and blood pressure medications have been resumed recommend continue. Patient with an incentive spirometer and reports she used it once and was unsure of why she truly had it. Discussed with the patient at length about the importance of incentive spirometer use and continued use at least 10 times every hour while awake. Patient encouraged to continue doing so at home to assist with lung expansion and also to continue with coughing and deep breathing postoperatively. Patient verbalized understanding and will continue. Patient is medically stable for discharge today and encouraged to follow-up with PCP on discharge. We will continue to monitor and follow along with orthopedic surgery during hospitalization. Thank you for this consultation. Patient will be discharged this afternoon she reports. The impression and plan of care has been dictated by Cristiana Beach, nurse practitioner as directed. Dr. Cherie MD I have performed a history and examination and MDM of this patient, discussed th e same with the dictator, and agree with the dictator's assessment and plan as written ,documented as a scribe. Based on total visit time, I have performed more than 50% of the visit. Any additional findings or plans will be noted. Past Medical History Past Medical History: Eye Disorder, GERD/Reflux, Hyperlipidemia, Hypertension, Osteoarthritis (OA), Thyroid Disorder Additional Past Medical History / Comment(s): currently taking A/B for stye right eye & orbital swelling around eye, seasonal allergies, urinary incon tinence, states has throat muscle @back of throat that is slightly enlarged & causes problems w/swallowing pills, has seen Dr Cates for this issue History of Any Multi-Drug Resistant Organisms: None Reported Past Surgical History: Breast Surgery, Orthopedic Surgery Additional Past Surgical History / Comment(s): L rotator cuff, cysts removed from right breast. Past Anesthesia/Blood Transfusion Reactions: Postoperative Nausea & Vomiting (PONV) Additional Past Anesthesia/Blood Transfusion Reaction / Comm: Hx difficult to arouse. Smoking Status: Never smoker - Past Family History Mother Family Medical History: Cancer Medications and Allergies Home Medications Medication Instructions Recorded Confirmed Type Atorvastatin Calcium [Lipitor] 10 mg PO MOTUWETHFR 11/11/15 03/22/22 History Cholecalciferol [Vitamin D3 (25 5,000 unit PO DAILY 03/04/19 03/22/22 History Mcg = 1000 Iu)] Levothyroxine Sodium 100 mcg PO DAILY 03/04/19 03/22/22 History lisinopriL 20 mg PO BID 03/04/19 03/22/22 History Cephalexin [Keflex] 500 mg PO Q8HR 03/22/22 03/22/22 History Famotidine [Pepcid] 20 mg PO BID 03/22/22 03/22/22 History Loratadine [Claritin] 10 mg PO DAILY 03/22/22 03/22/22 History Multivitamins, Thera [Multivitamin 1 tab PO DAILY 03/22/22 03/22/22 History (formulary)] Tobramycin 0.3% Ophth Soln [Tobrex 1 drop RIGHT EYE QID 03/22/22 03/22/22 History 0.3% Ophth Soln] Tolterodine ER [Detrol LA] 2 mg PO DAILY 03/22/22 03/22/22 History Ubidecarenone [Co Q-10] 400 mg PO DAILY 03/22/22 03/22/22 History Zinc 50 mg PO DAILY 03/22/22 03/22/22 History Aspirin 325 mg PO BID #60 tab 03/29/22 Rx Celecoxib [CeleBREX] 200 mg PO DAILY PRN #30 cap 03/29/22 Rx HYDROcodone/APAP 5-325MG [[place] 5] 1 - 2 each PO Q6HR PRN #32 tab 03/29/22 Rx Ondansetron [Zofran] 4 mg PO Q6HR PRN #30 tab 03/29/22 Rx Sennosides-Docusate Sodium 1 tab PO BID PRN #60 tablet 03/29/22 Rx [Senokot-S] Allergies Allergy/AdvReac Type Severity Reaction Status Date / Time clarithromycin [From Biaxin] Allergy Unknown Verified 03/29/22 09:35 Penicillins Allergy Anaphylaxis Verified 03/29/22 09:35 shellfish derived Allergy Anaphylaxis Verified 03/29/22 09:35 Sulfa (Sulfonamide Allergy Anaphylaxis Verified 03/29/22 09:35 Antibiotics) Physical Exam Vitals: Vital Signs Temp Pulse Pulse Resp BP Pulse Ox 03/30/22 08:00 98.8 F 70 18 167/74 95 03/30/22 02:00 97.9 F 72 17 148/75 93 L 03/29/22 19:53 98.4 F 77 18 154/83 94 L 03/29/22 17:30 59 L 155/80 100 03/29/22 17:00 65 145/75 100 03/29/22 16:30 66 170/82 99 03/29/22 16:15 66 158/82 99 03/29/22 16:00 63 175/85 98 03/29/22 15:40 97.6 F 67 18 126/62 100 03/29/22 14:30 58 L 16 138/58 99 03/29/22 14:15 52 L 16 139/65 99 03/29/22 14:00 50 L 16 133/60 96 03/29/22 13:48 50 L 16 131/67 99 03/29/22 13:33 50 L 16 140/63 98 03/29/22 13:18 97.7 F 61 14 117/60 99 Intake and Output 03/29/22 03/30/22 03/30/22 22:59 06:59 14:59 Intake Total 780 Balance 780 Intake: IV 300 Oral 480 Other: Voiding Method Toilet # Voids 2 1 Weight 94.1 kg Results CBC & Chem 7: 03/30/22 05:59 Labs: Abnormal Lab Results - Last 24 Hours (Table) 03/30/22 Range/Units 05:59 RBC 3.86 L (4.10-5.20) X 10*6/uL Hct 36.5 L (37.2-46.3) % MCH 32.1 H (27.0-32.0) pg Eosinophils # 0 L (0.04-0.35) X 10*3/uL
== END 2022-03-30 13:24 | disposition home or self-care (01) ==
LOC: OR 09:13 → 4SSUR 13:09 → OR 03-30 13:24
PROVIDERS: ATTEND Orthopaedic Surgery
DX: M17.12 Unilateral primary osteoarthritis, left knee (principal); M25.762 Osteophyte, left knee; I10 Essential (primary) hypertension; E03.9 Hypothyroidism, unspecified; E78.5 Hyperlipidemia, unspecified; K21.9 Gastro-esophageal reflux disease without esophagitis; Z97.3 Presence of spectacles and contact lenses; Z98.890 Other specified postprocedural states; Z83.3 Family history of diabetes mellitus; Z82.49 Family history of ischemic heart disease and other diseases of the circulatory system; Z79.890 Hormone replacement therapy; Z79.899 Other long term (current) drug therapy; Z88.1 Allergy status to other antibiotic agents; Z88.0 Allergy status to penicillin; Z88.2 Allergy status to sulfonamides; J30.2 Other seasonal allergic rhinitis
CPT/HCPCS: 97161; 64999; 64448; 76942; 85025; 88300; 73560; 27447; C1776; C1713; J2250; J1100; J0690 ×2; J2405; J3010; J1885; J1170; J2795

== ENCOUNTER 2022-06-23 17:48 | Observation (INO) | payer MEDICARE ==
--- NOTE | 2022-06-23 19:52 | ED ---
General Adult HPI - General Chief complaint: Recheck/Abnormal Lab/Rx Stated complaint: Hypertension Time Seen by Provider: 06/23/22 19:25 Source: patient, RN notes reviewed Mode of arrival: ambulatory Limitations: no limitations - History of Present Illness Initial comments: This is a pleasant 82-year-old female with a history of hypertension, hyperlipi demia, osteoarthritis and thyroid disorder. Patient states she started having a headache and fatigue today. Patient states the headache was actually quite severe. Patient is currently taking ibuprofen and acetaminophen after having left knee surgery earlier this summer. Since this is actually taking care of the headache. However she called a friend who is a nurse. At about 4:00 she came over the house and took her blood pressure and the systolic was in excess of 220. Diastolic was 110. They then repeated the blood pressure with a systolic about 190. Patient noted to be 167/80 here in triage. Patient denying any other associated symptoms. No focal weakness. No prior seizures. No dizziness or vertigo. no fever or chills, no changes in vision or hearing, no sore throat or diffic ulty with speech, no neck pain, no chest pain or shortness of breath, no abdominal pain, no nausea or vomiting, no changes in urination or bowel movements, no numbness or tingling, no extremity pain, no skin rashes or lesions. Past medical, surgical, social, and family history reviewed. - Related Data Home Medications Medication Instructions Recorded Confirmed Atorvastatin Calcium [Lipitor] 10 mg PO MOTUWETHFR 11/11/15 03/22/22 Cholecalciferol [Vitamin D3 (25 5,000 unit PO DAILY 03/04/19 03/22/22 Mcg = 1000 Iu)] Levothyroxine Sodium 100 mcg PO DAILY 03/04/19 03/22/22 lisinopriL 20 mg PO BID 03/04/19 03/22/22 Cephalexin [Keflex] 500 mg PO Q8HR 03/22/22 03/22/22 Famotidine [Pepcid] 20 mg PO BID 03/22/22 03/22/22 Loratadine [Claritin] 10 mg PO DAILY 03/22/22 03/22/22 Multivitamins, Thera [Multivitamin 1 tab PO DAILY 03/22/22 03/22/22 (formulary)] Tobramycin 0.3% Ophth Soln [Tobrex 1 drop RIGHT EYE QID 03/22/22 03/22/22 0.3% Ophth Soln] Tolterodine ER [Detrol LA] 2 mg PO DAILY 03/22/22 03/22/22 Ubidecarenone [Co Q-10] 400 mg PO DAILY 03/22/22 03/22/22 Zinc 50 mg PO DAILY 03/22/22 03/22/22 Previous Rx's Medication Instructions Recorded Aspirin 325 mg PO BID #60 tab 03/29/22 Celecoxib [CeleBREX] 200 mg PO DAILY PRN #30 cap 03/29/22 HYDROcodone/APAP 5-325MG [[place] 5] 1 - 2 each PO Q6HR PRN #32 tab 03/29/22 Ondansetron [Zofran] 4 mg PO Q6HR PRN #30 tab 03/29/22 Sennosides-Docusate Sodium 1 tab PO BID PRN #60 tablet 03/29/22 [Senokot-S] Allergies Allergy/AdvReac Type Severity Reaction Status Date / Time clarithromycin [From Biaxin] Allergy Unknown Verified 06/23/22 18:18 Penicillins Allergy Anaphylaxis Verified 06/23/22 18:18 shellfish derived Allergy Anaphylaxis Verified 06/23/22 18:18 Sulfa (Sulfonamide Allergy Anaphylaxis Verified 06/23/22 18:18 Antibiotics) Review of Systems ROS Statement: Those systems with pertinent positive or pertinent negative responses have been documented in the HPI. ROS Other: All systems not noted in ROS Statement are negative. Past Medical History Past Medical History: GERD/Reflux, Hyperlipidemia, Hypertension, Osteoarthritis (OA), Thyroid Disorder Additional Past Medical History / Comment(s): Patient denies any previous CVA or TIA in the past or previous DVT PE History of Any Multi-Drug Resistant Organisms: None Reported Past Surgical History: Breast Surgery, Orthopedic Surgery Additional Past Surgical History / Comment(s): L rotator cuff, cysts removed fro m right breast. Past Anesthesia/Blood Transfusion Reactions: Postoperative Nausea & Vomiting (PONV) Additional Past Anesthesia/Blood Transfusion Reaction / Comment(s): Hx difficult to arouse. Past Psychological History: No Psychological Hx Reported Smoking Status: Never smoker Past Alcohol Use History: None Reported Past Drug Use History: None Reported - Past Family History Mother Family Medical History: Cancer General Exam - General Exam Comments Initial Comments: Nontoxic-appearing 82-year-old female in no significant distress. Does not appear to be ill. Vital signs noted. Noted to be somewhat hypertensive. Cran ial nerves II through XII are intact. Limitations: no limitations General appearance: alert, in no apparent distress Head exam: Present: atraumatic, normocephalic, normal inspection Eye exam: Present: normal appearance, PERRL, EOMI. Absent: scleral icterus, conjunctival injection, periorbital swelling ENT exam: Present: normal exam, normal oropharynx, mucous membranes dry, mucous membranes moist, TM's normal bilaterally, normal external ear exam Neck exam: Present: normal inspection, full ROM. Absent: tenderness, meningismus, lymphadenopathy Respiratory exam: Present: normal lung sounds bilaterally. Absent: respiratory distress, wheezes, rales, rhonchi, stridor Cardiovascular Exam: Present: regular rate, normal rhythm, normal heart sounds, other (Occasional ectopic beat noted). Absent: systolic murmur, diastolic murmur, rubs, gallop, clicks GI/Abdominal exam: Present: soft, normal bowel sounds. Absent: distended, tenderness, guarding, rebound, rigid Extremities exam: Present: normal inspection, full ROM, normal capillary refill. Absent: tenderness, pedal edema, joint swelling, calf tenderness Back exam: Present: normal inspection Neurological exam: Present: alert, oriented X3, CN II-XII intact, other (No focal neurologic deficits. NIH 0. Cranial nerves II through XII are intact. Cerebellar testing is normal.). Absent: altered, abnormal gait, motor sensory deficit Psychiatric exam: Present: normal affect, normal mood Skin exam: Present: warm, dry, intact, normal color. Absent: rash Course Vital Signs 06/23/22 06/23/22 06/23/22 18:15 21:01 21:25 Temperature 98.4 F 98.1 F Pulse Rate 67 66 68 Respiratory 20 16 16 Rate Blood Pressure 167/80 215/100 235/101 O2 Sat by Pulse 98 96 96 Oximetry 06/23/22 06/23/22 22:52 23:49 Temperature Pulse Rate 61 58 L Respiratory 16 18 Rate Blood Pressure 174/77 165/74 O2 Sat by Pulse 96 95 Oximetry - Reevaluation(s) Reevaluation #1: 06/23/22 22:31 Medical record is reviewed Symptoms are improved here in the emergency department Patient is informed of results and questions answered Patient in no distress Patient's blood pressure is elevated with a systolic greater than 210. Labetalol 20 mg IV push is given. Repeat blood pressure was actually higher with a systolic blood pressure of 235. Did order another dose of medication. We'll admit the patient for hypertensive urgency. - Consultations Consultation #1: Case discussed in detail with Dr. Glass from [facility]. Patient will be admitted for observation, further evaluation and treatment EKG Findings - EKG Comments: EKG Findings:: EKG done at 1958 and review by the ED attending physician reveals sinus rhythm with occasional supraventricular premature atrial complexes. Rate of 70, intervals are normal otherwise, mild left axis deviation.no evidence of acute ST or T-wave changes. When compared to the previous study from 03/03/2022 there is no significant change. Medical Decision Making - Medical Decision Making The case was discussed in detail with ED attending physician. Presentation, findings, treatment plan discussed in detail. Supervising physician is Dr. Holden - Lab Data Result diagrams: 06/23/22 19:53 06/23/22 21:57 Lab Results 06/23/22 06/23/22 06/23/22 Range/Units 19:53 19:53 19:53 WBC 5.3 (3.8-10.6) k/uL RBC 4.22 (3.80-5.40) m/uL Hgb 13.7 (11.4-16.0) gm/dL Hct 38.7 (34.0-46.0) % MCV 91.7 (80.0-100.0) fL MCH 32.4 (25.0-35.0) pg MCHC 35.3 (31.0-37.0) g/dL RDW 13.2 (11.5-15.5) % Plt Count 149 L (150-450) k/uL MPV 7.6 Neutrophils % 59 % Lymphocytes % 31 % Monocytes % 6 % Eosinophils % 2 % Basophils % 0 % Neutrophils # 3.1 (1.3-7.7) k/uL Lymphocytes # 1.6 (1.0-4.8) k/uL Monocytes # 0.3 (0-1.0) k/uL Eosinophils # 0.1 (0-0.7) k/uL Basophils # 0.0 (0-0.2) k/uL Sodium (137-145) mmol/L Potassium (3.5-5.1) mmol/L Chloride (98-107) mmol/L Carbon Dioxide (22-30) mmol/L Anion Gap mmol/L BUN (7-17) mg/dL Creatinine (0.52-1.04) mg/dL Est GFR (CKD-EPI)AfAm (>60 ml/min/1.73 sqM) Est GFR (CKD-EPI)NonAf (>60 ml/min/1.73 sqM) Glucose (74-99) mg/dL Calcium (8.4-10.2) mg/dL Magnesium 2.0 (1.6-2.3) mg/dL Total Bilirubin (0.2-1.3) mg/dL AST (14-36) U/L ALT (4-34) U/L Alkaline Phosphatase (38-126) U/L Troponin I <0.012 (0.000-0.034) ng/mL Total Protein (6.3-8.2) g/dL Albumin (3.5-5.0) g/dL Urine Color Urine Appearance (Clear) Urine pH (5.0-8.0) Ur Specific [place] (1.001-1.035) Urine Protein (Negative) Urine Glucose (UA) (Negative) Urine Ketones (Negative) Urine Blood (Negative) Urine Nitrite (Negative) Urine Bilirubin (Negative) Urine Urobilinogen (<2.0) mg/dL Ur Leukocyte Esterase (Negative) Urine RBC (0-5) /hpf Urine WBC (0-5) /hpf Ur Squamous Epith Cells (0-4) /hpf Coronavirus (PCR) (Not Detectd) 06/23/22 06/23/22 06/23/22 Range/Units 20:00 20:15 21:57 WBC (3.8-10.6) k/uL RBC (3.80-5.40) m/uL Hgb (11.4-16.0) gm/dL Hct (34.0-46.0) % MCV (80.0-100.0) fL MCH (25.0-35.0) pg MCHC (31.0-37.0) g/dL RDW (11.5-15.5) % Plt Count (150-450) k/uL MPV Neutrophils % % Lymphocytes % % Monocytes % % Eosinophils % % Basophils % % Neutrophils # (1.3-7.7) k/uL Lymphocytes # (1.0-4.8) k/uL Monocytes # (0-1.0) k/uL Eosinophils # (0-0.7) k/uL Basophils # (0-0.2) k/uL Sodium 138 (137-145) mmol/L Potassium 3.7 (3.5-5.1) mmol/L Chloride 105 (98-107) mmol/L Carbon Dioxide 27 (22-30) mmol/L Anion Gap 6 mmol/L BUN 13 (7-17) mg/dL Creatinine 0.73 (0.52-1.04) mg/dL Est GFR (CKD-EPI)AfAm >90 (>60 ml/min/1.73 sqM) Est GFR (CKD-EPI)NonAf 78 (>60 ml/min/1.73 sqM) Glucose 104 H (74-99) mg/dL Calcium 9.6 (8.4-10.2) mg/dL Magnesium (1.6-2.3) mg/dL Total Bilirubin 0.8 (0.2-1.3) mg/dL AST 25 (14-36) U/L ALT 20 (4-34) U/L Alkaline Phosphatase 60 (38-126) U/L Troponin I (0.000-0.034) ng/mL Total Protein 6.3 (6.3-8.2) g/dL Albumin 4.1 (3.5-5.0) g/dL Urine Color Light Yellow Urine Appearance Clear (Clear) Urine pH 6.0 (5.0-8.0) Ur Specific [place] 1.007 (1.001-1.035) Urine Protein Negative (Negative) Urine Glucose (UA) Negative (Negative) Urine Ketones Negative (Negative) Urine Blood Negative (Negative) Urine Nitrite Negative (Negative) Urine Bilirubin Negative (Negative) Urine Urobilinogen <2.0 (<2.0) mg/dL Ur Leukocyte Esterase Trace H (Negative) Urine RBC 1 (0-5) /hpf Urine WBC 4 (0-5) /hpf Ur Squamous Epith Cells 4 (0-4) /hpf Coronavirus (PCR) Not Detected (Not Detectd) Disposition Clinical Impression: Hypertensive urgency, Headache, Fatigue Disposition: ADMITTED IP TO THIS HOSP Condition: Fair Is patient prescribed a controlled substance at d/c from ED?: No Time of Disposition: 22:32 Decision to Admit Reason: Admit from EC Decision Time: 22:32
[2022-06-23 20:03] LABS: Basophils % (A) 0 %; Eosinophils # (A) 0.1 k/uL (0-0.7); Eosinophils % (A) 2 %; HCT 38.7 % (34.0-46.0); HGB 13.7 gm/dL (11.4-16.0); Lymphocytes # (A) 1.6 k/uL (1.0-4.8); Lymphocytes % (A) 31 %; MCH 32.4 pg (25.0-35.0); MCHC 35.3 g/dL (31.0-37.0); MCV 91.7 fL (80.0-100.0); Mean Platelet Volume 7.6; Monocytes # (A) 0.3 k/uL (0-1.0); Monocytes % (A) 6 %; Neutrophils # (A) 3.1 k/uL (1.3-7.7); Neutrophils % (A) 59 %; Platelet Count 149 k/uL (150-450); RBC 4.22 m/uL (3.80-5.40); RDW 13.2 % (11.5-15.5); WBC 5.3 k/uL (3.8-10.6)
--- NOTE | 2022-06-23 20:27 | XR ---
EXAMINATION: XR chest 1V portable DATE AND TIME: 06/23/2022 8:22 PM CLINICAL INDICATION: htn TECHNIQUE: PA radiograph COMPARISON: No prior studies available. FINDINGS: The lungs are clear. The pleural spaces are negative. The cardiac silhouette is not enlarged. The remainder of the mediastinal silhouette is unremarkable. The skeletal structures and soft tissues are negative for acute findings. IMPRESSION: No definite acute radiographic process.
[2022-06-23 20:28] LABS: Appearance,Urine Clear (Clear); Bilirubin,Urine Negative (Negative); Blood,Urine Negative (Negative); Color,Urine Light Yellow; Glucose,Urine (UA) Negative (Negative); Ketones,Urine Negative (Negative); Leukocyte Esterase,Urine Trace (Negative); Nitrite,Urine Negative (Negative); Protein,Urine Negative (Negative); RBC,Urine 1 /hpf (0-5); Specific Gravity,Urine 1.007 (1.001-1.035); Squamous Epithelial Cell,Urine 4 /hpf (0-4); Urobilinogen,Urine <2.0 mg/dL (<2.0); WBC,Urine 4 /hpf (0-5)
--- NOTE | 2022-06-23 20:52 | CT ---
EXAMINATION TYPE: CT brain wo con DATE OF EXAM: 06/23/2022 HISTORY: headache and high BP CT DLP: 1088.4 mGycm. Automated Exposure Control for Dose Reduction was Utilized. TECHNIQUE: CT scan of the head is performed without contrast. COMPARISON: 03/24/2017 FINDINGS: There is no acute intracranial hemorrhage or midline shift identified. There is diffuse v entricular and sulcal prominence consistent with diffuse age-related cerebral atrophy. There is low- attenuation in the periventricular white matter consistent with chronic small vessel ischemic change. The globes are intact and the visualized sinuses are clear. IMPRESSION: No acute intracranial hemorrhage or midline shift. There is diffuse age-related cerebra l atrophy and chronic small vessel ischemic change noted.
[2022-06-23] MEDS ORDERED: LABETALOL SYRINGE 5 MG/ML IVP STA (21:06)
[2022-06-23 22:29] LABS: ALT 20 U/L (4-34); AST 25 U/L (14-36); African American GFR (CKD) >90 (>60 ml/min/1.73 sqM); Albumin 4.1 g/dL (3.5-5.0); Alkaline Phosphatase 60 U/L (38-126); Anion Gap 6 mmol/L; Blood Urea Nitrogen 13 mg/dL (7-17); Calcium 9.6 mg/dL (8.4-10.2); Carbon Dioxide 27 mmol/L (22-30); Chloride 105 mmol/L (98-107); Glucose 104 mg/dL (74-99); Non-African American GFR(CKD) 78 (>60 ml/min/1.73 sqM); Potassium 3.7 mmol/L (3.5-5.1); Sodium 138 mmol/L (137-145); Total Bilirubin 0.8 mg/dL (0.2-1.3); Total Protein 6.3 g/dL (6.3-8.2)
[2022-06-23] MEDS ORDERED: LABETALOL 5 MG/ML VIAL MDV IVP STA (22:30)
[2022-06-23] MEDS ORDERED: NALOXONE 0.4 MG/ML 1 ML VIAL IV PRN (23:19)
[2022-06-23] MEDS ORDERED: ACETAMINOPHEN TAB 325 MG TAB PO PRN (23:19)
[2022-06-23] MEDS ORDERED: LABETALOL 5 MG/ML VIAL MDV IVP SCH (23:30)
[2022-06-23] MEDS ORDERED: amLODIPine 10 MG TAB PO STA (23:34)
[2022-06-23] MEDS ORDERED: LABETALOL 200 MG TAB PO STA (23:34)
[2022-06-23] MEDS ORDERED: LABETALOL 5 MG/ML VIAL MDV IVP PRN (23:38)
--- NOTE | 2022-06-24 03:29 | P.HPIM ---
History of Present Illness H&P Date: 06/23/22 The patient is an 82-year-old female with a PMH of hypertension, hyperlipidemia, hypothyroidism who presents to the emergency room with complaints of headache and fatigue. The patient states that upon waking up this morning, she felt more tired than usual, and proceeded to take multiple naps throughout the day which is very unusual for her. She then reports that at around 4:30 PM, she developed an occipital headache, which prompted her to check her blood pressure as she normally developed these whenever it's running high. She discovered that her blood pressure was 220/110. She subsequently decided to come to the emergency room. She reported feeling significantly better at the time of interview, and stated that she now only has a mild frontal headache which she attributes to her chronic sinusitis which have been flaring up recently. She denied experiencing slurred speech, weakness, numbness, or tingling. Also denied visual disturbances. Denied experiencing chest discomfort, shortness of breath, fever, chills, or dizziness. CT brain emergency room was unremarkable. Chest x-ray was also unremarkable with EKG showing sinus rhythm with PVCs at 70 bpm with T- wave inversion in lead 3 and poor R-wave progression. Laboratory evaluation was unremarkable. Review of systems: Pertinent positives and negatives as discussed in HPI, a complete review of systems was performed and all other systems are negative. Physical examination: General: non toxic, no distress, appears at stated age, obese Derm: no unusual rashes/lesions, warm Head: atraumatic, normocephalic, symmetric Eyes: EOMI, no lid lag, anicteric sclera, pupils equal round reactive to light ENT: Nose and ears atraumatic Neck: No cervical lymphadenopathy, trachea midline, supple Mouth: no lip lesion, mucus membranes moist Cardiovascular: S1S2 reg, no murmur, positive dorsalis pedis pulse bilateral, no edema Lungs: CTA bilateral, no rhonchi, no rales, no accessory muscle use Abdominal: soft, nontender to palpation, no guarding Ext: muscle strength 5 out of 5 in all 4 extremities grossly, no gross muscle atrophy, no contractures, Neuro: CN II-XI grossly intact, no gross focal neuro deficits Psych: Alert, oriented, appropriate affect Assessment/plan Hypertensive urgency -Status post labetalol IV in the emergency room -Ordered single doses of Norvasc and labetalol by mouth -Start patient on Norvasc 10 -Continue home lisinopril dose -Consider starting diuretic if BP not controlled in a.m. Chronic conditions: Hyperlipidemia, hypothyroidism -Continue with home meds DVT prophylaxis -Heparin subcu The patient is admitted with an anticipated less than 2 midnight stay for eval uation of htn urgency. CODE STATUS: Full Code Discussed with: Patient Anticipated discharge date: in am Anticipated discharge place: Home Past Medical History Past Medical History: GERD/Reflux, Hyperlipidemia, Hypertension, Osteoarthritis (OA), Thyroid Disorder Additional Past Medical History / Comment(s): Patient denies any previous CVA or TIA in the past or previous DVT PE History of Any Multi-Drug Resistant Organisms: None Reported Past Surgical History: Breast Surgery, Orthopedic Surgery Additional Past Surgical History / Comment(s): L rotator cuff, cysts removed from right breast. Past Anesthesia/Blood Transfusion Reactions: Postoperative Nausea & Vomiting (PONV) Additional Past Anesthesia/Blood Transfusion Reaction / Comment(s): Hx difficult to arouse. Past Psychological History: No Psychological Hx Reported Smoking Status: Never smoker Past Alcohol Use History: None Reported Past Drug Use History: None Reported - Past Family History Mother Family Medical History: Cancer Medications and Allergies Home Medications Medication Instructions Recorded Confirmed Type Atorvastatin Calcium [Lipitor] 10 mg PO MOTUWETHFR 11/11/15 03/22/22 History Cholecalciferol [Vitamin D3 (25 5,000 unit PO DAILY 03/04/19 03/22/22 History Mcg = 1000 Iu)] Levothyroxine Sodium 100 mcg PO DAILY 03/04/19 03/22/22 History lisinopriL 20 mg PO BID 03/04/19 03/22/22 History Cephalexin [Keflex] 500 mg PO Q8HR 03/22/22 03/22/22 History Famotidine [Pepcid] 20 mg PO BID 03/22/22 03/22/22 History Loratadine [Claritin] 10 mg PO DAILY 03/22/22 03/22/22 History Multivitamins, Thera [Multivitamin 1 tab PO DAILY 03/22/22 03/22/22 History (formulary)] Tobramycin 0.3% Ophth Soln [Tobrex 1 drop RIGHT EYE QID 03/22/22 03/22/22 History 0.3% Ophth Soln] Tolterodine ER [Detrol LA] 2 mg PO DAILY 03/22/22 03/22/22 History Ubidecarenone [Co Q-10] 400 mg PO DAILY 03/22/22 03/22/22 History Zinc 50 mg PO DAILY 03/22/22 03/22/22 History Aspirin 325 mg PO BID #60 tab 03/29/22 Rx Celecoxib [CeleBREX] 200 mg PO DAILY PRN #30 cap 03/29/22 Rx HYDROcodone/APAP 5-325MG [[place] 5] 1 - 2 each PO Q6HR PRN #32 tab 03/29/22 Rx Ondansetron [Zofran] 4 mg PO Q6HR PRN #30 tab 03/29/22 Rx Sennosides-Docusate Sodium 1 tab PO BID PRN #60 tablet 03/29/22 Rx [Senokot-S] Allergies Allergy/AdvReac Type Severity Reaction Status Date / Time clarithromycin [From Biaxin] Allergy Unknown Verified 06/23/22 18:18 Penicillins Allergy Anaphylaxis Verified 06/23/22 18:18 shellfish derived Allergy Anaphylaxis Verified 06/23/22 18:18 Sulfa (Sulfonamide Allergy Anaphylaxis Verified 06/23/22 18:18 Antibiotics) Physical Exam Vitals: Vital Signs Temp Pulse Resp BP Pulse Ox 06/23/22 23:49 58 L 18 165/74 95 06/23/22 22:52 61 16 174/77 96 06/23/22 21:25 68 16 235/101 96 06/23/22 21:01 98.1 F 66 16 215/100 96 06/23/22 18:15 98.4 F 67 20 167/80 98 Intake and Output 06/23/22 06/23/22 06/24/22 14:59 22:59 06:59 Other: Weight 90.718 kg Results CBC & Chem 7: 06/23/22 19:53 06/23/22 21:57 Labs: Abnormal Lab Results - Last 24 Hours (Table) 06/23/22 06/23/22 06/23/22 Range/Units 19:53 20:15 21:57 Plt Count 149 L (150-450) k/uL Glucose 104 H (74-99) mg/dL Ur Leukocyte Esterase Trace H (Negative)
[2022-06-24] MEDS ORDERED: FAMOTIDINE 20 MG TAB PO SCH (04:00)
[2022-06-24 04:35] LABS: Calcium 9.3 mg/dL (8.4-10.2); Phosphorus 3.9 mg/dL (2.5-4.5); Potassium 3.7 mmol/L (3.5-5.1)
[2022-06-24 06:21] VITALS: RESP 17; TEMP 98
[2022-06-24] MEDS ORDERED: ATORVASTATIN 10 MG TAB PO SCH (09:00)
[2022-06-24] MEDS ORDERED: amLODIPine 10 MG TAB PO SCH (09:00)
[2022-06-24] MEDS ORDERED: lisinopriL 20 MG TAB PO SCH (09:00)
[2022-06-24] MEDS ORDERED: HEPARIN SODIUM,PORCINE/PF 5,000 UNIT/0.5 ML SYRINGE SQ SCH (09:00)
[2022-06-24 11:12] VITALS: BP 129/66; PULSE 69
--- NOTE | 2022-06-24 13:49 | P.DS ---
Providers Date of admission: 06/23/22 23:22 Expected date of discharge: 06/24/22 Attending physician: Royce Glass MD Primary care physician: [facility] Course: The patient is an 82-year-old female with a PMH of hypertension, hyperlipidemia, hypothyroidism who presents to the emergency room with complaints of headache and fatigue. The patient states that upon waking up this morning, she felt more tired than usual, and proceeded to take multiple naps throughout the day which is very unusual for her. She then reports that at around 4:30 PM, she developed an occipital headache, which prompted her to check her blood pressure as she normally developed these whenever it's running high. She discovered that her blood pressure was 220/110. She subsequently decided to come to the emergency room. She reported feeling significantly better at the time of interview, and stated that she now only has a mild frontal headache which she attributes to her chronic sinusitis which have been flaring up recently. She denied experiencing slurred speech, weakness, numbness, or tingling. Also denied visual disturbances. Denied experiencing chest discomfort, shortness of breath, fever, chills, or dizziness. CT brain emergency room was unremarkable. Chest x-ray was also unremarkable with EKG showing sinus rhythm with PVCs at 70 bpm with T- wave inversion in lead 3 and poor R-wave progression. Laboratory evaluation was unremarkable. Patient was given labetalol IV in the ED. She was started on amlodipine 10 mg by mouth daily. She was continued on her home medication of lisinopril 20 mg by mouth twice a day. Patient was seen and examined on 06/24/2020. No acute events overnight. She reports resolution of her headache. She denies any chest pain, shortness of breath or palpitations. No nausea or vomiting. No lightheadedness. She'll be prescribed amlodipine 10 mg by mouth daily on discharge. She is advised to obtain a blood pressure monitor and record a log to be followed up with her PCP within 1-2 days of discharge. Patient verbalized understanding of the plan. Pertinent studies include chest x-ray, brain CT Physical examination: General: non toxic, no distress, appears at stated age, obese Derm: no unusual rashes/lesions, warm Head: atraumatic, normocephalic, symmetric Eyes: EOMI, no lid lag, anicteric sclera ENT: Nose and ears atraumatic Neck: No cervical lymphadenopathy, trachea midline, supple Mouth: no lip lesion, mucus membranes moist Cardiovascular: S1S2 reg, no murmur, no edema Lungs: CTA bilateral, no rhonchi, no rales, no accessory muscle use Ext: muscle strength 5 out of 5 in all 4 extremities grossly, no gross muscle atrophy, no contractures, Neuro: no gross focal neuro deficits Psych: Alert, oriented, appropriate affect Discharge Diagnosis: Hypertensive urgency Chronic conditions: Hyperlipidemia, hypothyroidism Patient Condition at Discharge: Stable Plan - Discharge Summary New Discharge Prescriptions: New amLODIPine [Norvasc] 10 mg PO DAILY #30 tab Continue Atorvastatin Calcium [Lipitor] 10 mg PO HS Levothyroxine Sodium 100 mcg PO DAILY lisinopriL 20 mg PO BID Tolterodine ER [Detrol LA] 2 mg PO DAILY Zinc 50 mg PO DAILY Famotidine [Pepcid] 20 mg PO BID Ubidecarenone [Co Q-10] 400 mg PO DAILY Cholecalciferol [Vitamin D3 (125 Mcg = 5000 Iu)] 125 mcg PO DAILY Discharge Medication List Atorvastatin Calcium [Lipitor] 10 mg PO HS 11/11/15 [History] Levothyroxine Sodium 100 mcg PO DAILY 03/04/19 [History] lisinopriL 20 mg PO BID 03/04/19 [History] Famotidine [Pepcid] 20 mg PO BID 03/22/22 [History] Tolterodine ER [Detrol LA] 2 mg PO DAILY 03/22/22 [History] Ubidecarenone [Co Q-10] 400 mg PO DAILY 03/22/22 [History] Zinc 50 mg PO DAILY 03/22/22 [History] Cholecalciferol [Vitamin D3 (125 Mcg = 5000 Iu)] 125 mcg PO DAILY 06/24/22 [History] amLODIPine [Norvasc] 10 mg PO DAILY #30 tab 06/24/22 [Rx] Follow up Appointment(s)/Referral(s): Naveed Viera MD [Primary Care Provider] - 1-2 days Activity/Diet/Wound Care/Special Instructions: Physician recommending a blood pressure monitoring cuff for home use. This is not a covered insurance benefit. Equipment can be obtained from any pharmacy without a prescription. Follow up with your PCP within 1-2 days of discharge. Take all medications as advised. Continue to monitor your BP at home. Take you log to your PCP for further titration of medications. Come back to the ED for worsening chest pain, headache, blurry vision, weakness, shortness of breath or palpitations. Discharge Disposition: HOME SELF-CARE
== END 2022-06-24 14:26 | disposition home or self-care (01) ==
LOC: EC 17:48 → 6NMEDSUR 23:22
PROVIDERS: ADMIT Internal Medicine; ATTEND Internal Medicine
DX: I16.0 Hypertensive urgency (principal); I10 Essential (primary) hypertension; E78.5 Hyperlipidemia, unspecified; K21.9 Gastro-esophageal reflux disease without esophagitis; E03.9 Hypothyroidism, unspecified; E66.9 Obesity, unspecified; Z79.890 Hormone replacement therapy; Z79.899 Other long term (current) drug therapy; Z79.82 Long term (current) use of aspirin; Z79.1 Long term (current) use of non-steroidal anti-inflammatories (NSAID); Z88.0 Allergy status to penicillin; Z88.2 Allergy status to sulfonamides; Z80.9 Family history of malignant neoplasm, unspecified; Z20.822 Contact with and (suspected) exposure to COVID-19; Z68.35 Body mass index [BMI] 35.0-35.9, adult
CPT/HCPCS: 96376; 96374; 99285; 36415; 93005; 80053; 80048; 83735 ×2; 84100; 84484 ×2; 85025; 81001; 87635; 71045; 70450; G0378

== ENCOUNTER → 2023-09-04 | Outpatient (CLI) | payer MEDICARE ==
[2023-09-04 11:00] LABS: INR 0.9 (<1.2); Partial Thromboplastin Time 25.5 sec (22.0-30.0); Prothrombin Time 10.4 sec (10.0-12.5)
[2023-09-04 14:59] LABS: HCT 39.3 % (37.2-46.3); HGB 13.3 g/dL (12.0-15.0); MCH 32.1 pg (27.0-32.0); MCHC 33.8 g/dL (32.0-37.0); MCV 94.9 FL (80.0-97.0); Mean Platelet Volume 9.9 FL (9.5-12.2); NRBC Per 100 WBC 0 X 10*3/uL (0.00-0.01); Platelet Count 156 X 10*3/uL (140-440); RBC 4.14 X 10*6/uL (4.10-5.20); RDW 12.1 % (11.5-14.5); WBC 3.64 X 10*3/uL (4.50-10.00)
[2023-09-04 15:07] LABS: ALT 16 U/L (8-44); AST 18 U/L (13-35); Albumin 4.2 g/dL (3.8-4.9); Alkaline Phosphatase 63 U/L (41-126); BUN/Creat Ratio 16.33 Ratio (12.00-20.00); Blood Urea Nitrogen 19.6 mg/dL (9.0-27.0); Calcium 9.8 mg/dL (8.7-10.3); Carbon Dioxide 25.9 mmol/L (21.6-31.8); Chloride 106 mmol/L (96-109); Globulin 2.1 g/dL (1.6-3.3); Glucose 85 mg/dL (70-110); Potassium 4.5 mmol/L (3.5-5.5); Sodium 142 mmol/L (135-145); Total Bilirubin 0.4 mg/dL (0.3-1.2); Total Protein 6.3 g/dL (6.2-8.2)
== END | disposition home or self-care (01) ==
LOC: LABWHC1 09:59
PROVIDERS: ATTEND Orthopaedic Surgery
DX: Z01.818 Encounter for other preprocedural examination (principal); I49.8 Other specified cardiac arrhythmias; M17.11 Unilateral primary osteoarthritis, right knee; Z22.322 Carrier or suspected carrier of Methicillin resistant Staphylococcus aureus
CPT/HCPCS: 36415; 80053; 85027; 85610; 85730; 87070; 93005

== ENCOUNTER 2023-09-12 09:33 | Inpatient (IN) | payer MEDICARE ==
[~2023-09-12 09:33] MED LIST changes: +HYDROmorphone 0.5 MG/0.5 ML SYRINGE IVP PRN; +LIDOCAINE 1% (10MG/ML) FOR IV START INTRADERMA PRN; +MIDAZOLAM 2 MG/2 ML VIAL IV PRN; +TRANEXAMIC 1,000 MG/100ML-NACL 1,000 MG in SALINE 1 100ML.BAG IVPB PRN; -TRANEXAMIC ACID IN NACL,ISO-OS 1,000 MG in SALINE 1 100ML.BAG IVPB PRN
[2023-09-12] MEDS: LACTATED RINGERS 1,000 ML IV SCH (10:24)
[2023-09-12] MEDS ORDERED: ROPIVACAINE 5 MG/ML 30 ML VIAL ONE (11:15)
[2023-09-12] MEDS ORDERED: DEXAMETHASONE SOD PHOSPHATE 4 MG/ML 1 ML VIAL ONE (11:15)
[2023-09-12] MEDS ORDERED: PROPOFOL 10 MG/ML 20 ML VIAL IV ONE (11:15)
[2023-09-12] MEDS ORDERED: ceFAZolin 1,000 MG in SODIUM CHLORIDE 0.9% 1,000 ML IRRIGATION ONE (11:40)
--- NOTE | 2023-09-12 11:42 | P.ANPRN ---
Procedure Note - Anesthesia - Nerve Block Performed Right Adductor Canal Infusion Time Out Performed: Yes Date of Procedure: 09/12/23 Procedure Start Time: 10:56 Procedure Stop Time: 11:06 Location of Patient: PreOp Indication: Acute Post-Operative Pain, Requested by Surgeon Sedation Type: Sedate with meaningful contact maintained Preparation: Sterile Prep, Sterile Dressing Position: Supine Catheter: Indwelling Needle Types: [place] Needle Gauge: 21 Ultrasound used to visualize needle placement: Yes Ultrasound used to observe medication spread: Yes Blood Aspirated: No Pain Paresthesia on Injection Noted: No Resistance on Injection: Normal Image Stored and Saved: Yes Events: Uneventful and Well Tolerated (Ropivacaine 0.5% plus dexamethasone 4 mg)
--- NOTE | 2023-09-12 11:43 | P.ANPRN ---
Procedure Note - Anesthesia - Nerve Block Performed Right iPack Single Time Out Performed: Yes Date of Procedure: 09/12/23 Procedure Start Time: 11:07 Procedure Stop Time: 11:10 Location of Patient: PreOp Indication: Acute Post-Operative Pain, Requested by Surgeon Sedation Type: Sedate with meaningful contact maintained Preparation: Sterile Prep Needle Types: Pajunk Needle Gauge: 21 Ultrasound used to visualize needle placement: Yes Ultrasound used to observe medication spread: Yes Blood Aspirated: No Pain Paresthesia on Injection Noted: No Resistance on Injection: Normal Image Stored and Saved: Yes Events: Uneventful and Well Tolerated (Ropivacaine 0.5% 20 cc plus dexamethasone 4 mg)
--- NOTE | 2023-09-12 12:33 | P.OP ---
Date of Procedure: 09/12/23 Preoperative Diagnosis: Severe osteoarthritis right knee Postoperative Diagnosis: Severe osteoarthritis right knee Procedure(s) Performed: Right total knee arthroplasty Implants: [employer] Journey II CR Oxinium cruciate retaining femoral component size 6, right [employer] Journey nonporous tibial baseplate size 4, right [employer] Journey II, XLPE Deep Dished articular insert, size 11 mm, Size 3-4, right [employer] Journey Aleah II resurfacing patellar component, oval, 32 mm All components were cemented using Palacos R bone cement The articulation is Oxinium on polyethylene Anesthesia: spinal Surgeon: Norman Martínez [employer] Utility Worker #1: Shauna Rodriguez Estimated Blood Loss (ml): 30 Pathology: none sent Condition: stable Disposition: PACU Indications for Procedure: The patient's knee is end-stage, and conservative management has failed. The operation of knee replacement has been discussed at length in the office, as well as potential risks and complications. These are inclusive of, but not limited to: Infection, bleeding, scarring, discomfort, stiffness, blood vessel and nerve damage, need for further surgery, failure to relieve symptoms, persistence, recurrence, or worsening of problems, loosening, dislocation, wear, blood clot, pulmonary embolism, , gait dysfunction, stiffness, and other risks as discussed in the office. Patient elects to proceed and the consent form has been signed. Operative Findings: The operative findings are consistent with severe osteoarthritis of the right knee Description of Procedure: The patient was seen in the preoperative area, the consent was reviewed and the operative site was marked with a skin marker. The patient verified the procedure and the operative site. An adductor canal pain catheter and an iPACK block were placed by anesthesia in the preoperative area. The patient was then brought to the operating room and positioned on the operating room table in the supine position. Preoperative antibiotics and a gram of tranexamic acid were given intravenously. A spinal anesthetic was administered by the anesthesia department. Care was taken to make sure that all pressure points were adequately padded. A tourniquet was placed on the upper thigh and the lower extremity was prepped with ChloraPrep and draped in usual sterile fashion. A universal time-out was then performed which confirmed the patient's name, surgical site, ALLERGIES, and consent. The lower extremity was then exsanguinated and tourniquet was inflated to 250 mmHg. A standard anterior midline approach to the knee was performed. The skin and subcutaneous tissue were sharply dissected down to the patellar tendon. A medial parapatellar arthrotomy was then performed. The knee was then extended, the patellar was everted, and the knee was flexed. The infra-patellar fat pad was removed in order to enhance exposure. The anterior horns of both menisci were excised, and a release was performed to the posterior medial aspect of the knee. On gross visual inspection, there was complete loss of articular cartilage in the medial and patellofemoral joint spaces. There was also significant cartilage damage in the lateral compartment. There were multiple periarticular osteophytes globally about the knee which were then removed with a Ronguer. The femoral canal was then opened with the 9.5 mm intramedullary drill. The 8 mm intramedullary brynn was then inserted into the femoral canal with the distal femoral cutting guide set for 5 of valgus. The distal femoral cutting block was then pinned in place. The intramedullary brynn was then removed, and the distal femur was then cut. The cutting block was then removed and the cut was checked for symmetry. The resected bone was then measured to confirm the appropriate distal femoral resection. Next, the sizing guide was then placed and set for 3 external rotation based off of the epicondylar axis and Falls's line. Pins were then placed and the drill holes, and the femur was sized with the sizing stylus. The pins were then removed, and the sizing guide was then removed. The spikes of the appropriate size femoral block was then placed into the predrilled holes, and malleted into place. Two 45 mm pins were then placed into the fixation holes on the cutting block. An priscilla wing was then used to ensure there would be no notching with the anterior cut. The anterior condyles were cut without notching. The anterior chord cut was then performed, followed by the posterior cut, posterior chamfer cut, and the anterior chamfer cut. The collateral ligaments were protected during the entire process. The cutting block was then removed. Any remaining bone and osteophytes were removed from the femur with a Ronguer. Attention was then directed to the tibia. The remaining ACL was removed with a Ronguer, and the tibia was then gently subluxed forward with a large bent knee retractor. Any remaining menisci were excised. The posterior lateral corner was cauterized in order to coagulate the lateral geniculate artery. The extra medullary tibial cutting guide was then placed, set for the appropriate rotation, slope, and depth of resection. The proximal tibia cutting guide was then pinned in place. Proximal tibia was then cut and sized. A curved osteotome was then used to remove any posterior osteophytes from the distal femur. The femoral trial was placed. A narrow saw blade was then used to remove the anterior intracondylar femoral bone. The CR notch trial was then placed. The tibial trial was placed with the appropriate-sized insert. The knee was able to fully extend and flex to 130 and was stable throughout all range of motion. The knee was then extended and the patella was everted. Patella was then measured, and then using an osteotomy guide, the patella was cut at the appropriate level. The patellar component was sized. The patellar drill guide was placed and the patella was drilled. The patella trial was then placed. The knee was then taken through range of motion with the patella trial and the patella tracked normally using the no thumbs technique. The patella trial was then removed. The knee was then flexed and lug holes were drilled through the femoral trial and the femoral trial was then removed. The tibial was then re- exposed, and the tibial broach guide was then pinned in place after it was set for the appropriate rotation to allow for the most coverage without overhang. The tibia was then reamed and broached. The femoral canal was plugged with autologous bone. The cut surfaces of bone were then irrigated with pulsatile lavage. The knee was also irrigated with Irrisept solution. The components were then opened, the cement was mixed. Cement was placed on the backside of the femoral, tibial, and patellar components. Cement was then applied to the tibial surface and pressurized into the surface using finger pressurization technique. The tibial component was then applied and excess cement was removed after it was impacted securely noted to be flush with the cut surface. In similar fashion, the cement was applied to the cut femoral surface, pressurized and using finger pressurization the component was impacted in place. Excess cement was removed. The polyethylene spacer was then implanted and locked into position. Patellar component was then applied in a similar technique and the patellar clamp was used to hold patella in place while the cement hardened. The knee was held in full extension while the cement hardened. Once the cement had fully hardened, the knee was reinspected. Any other cement extrusion was removed the final range of motion testing showed range of motion from 0-130 with excellent stability, both medial and laterally and appropriate alignment of the leg. Patella tracked normally. After the cemented hardened, the tourniquet was released and hemostasis was obtained. A second gram of transexamic acid was given intravenously. The knee was again irrigated. The knee was again taken through range of motion and found to be stable throughout all range of motion of 0-130, and the patella tracked normally. The fascia was then closed with 0 Vicryl followed by #2 strata fix suture. The subcutaneous tissue was closed with 3-0 Vicryl and 3-0 strata fix. Exofin glue was used for the skin and placed with the knee in flexion. After the glue had dried, and Optafoam silver impregnated dressing was applied. A lightly compressive dressing was applied using web roll and Rosales wrap. Patient was then transferred to the stretcher and taken to recovery room in stable condition. Sponge and needle counts were correct. The therapeutic recreation assistant VICKI Roberson was required due the complexity surgery and the need for a skilled surgical supply assistant. She assisted in positioning, draping, retraction, and closure of the wound.
[2023-09-12] MEDS ORDERED: ROPIVACAINE 0.75% 1,100 MG, SODIUM CHLORIDE 0.9% 500 ML 403 ML, EMPTY PAIN BALL 1 EACH MISCELLANE PRN ×2 (13:06)
[2023-09-12] MEDS ORDERED: ONDANSETRON 4 MG/2 ML VIAL IVP PRN (13:07)
[2023-09-12] MEDS ORDERED: bisacodyL 10 MG SUPP RECTAL PRN (13:07)
[2023-09-12] MEDS ORDERED: MAGNESIUM HYDROXIDE 2,400 MG/30 ML CUP PO PRN (13:07)
[2023-09-12] MEDS ORDERED: NA PHOS,M-B/NA PHOS,DI-BA 133 ML ENEMA RECTAL PRN (13:07)
[2023-09-12] MEDS ORDERED: Acetaminophen-Codeine 300-30mg TAB PO PRN (13:07)
[2023-09-12] MEDS ORDERED: HYDROmorphone 0.5 MG/0.5 ML SYRINGE IVP PRN ×3 (13:07)
[2023-09-12] MEDS ORDERED: NALOXONE 0.4 MG/ML 1 ML VIAL IV PRN (13:07)
[2023-09-12] MEDS: SODIUM CHLORIDE 0.9% 1,000 ML IV SCH (15:49)
[2023-09-12] MEDS: Acetaminophen-Codeine 300-30mg TAB PO PRN ×2 (16:13→22:32)
--- NOTE | 2023-09-12 19:34 | XR ---
EXAMINATION TYPE: XR knee limited RT DATE OF EXAM: 09/12/2023 7:25 PM CLINICAL INDICATION:Female, 83 years old with history of Evaluation for Postop abnormality and alignm ent; [facility] COMPARISON: None. TECHNIQUE AND FINDINGS: Two views of the right knee. A total knee arthroplasty is in place, appears intact and normally align ed. No abnormal perihardware lucency or fracture. No significant malalignment. Posterior resurfacing changes of the patella. Soft tissues show no unexpected radiopaque foreign body. Some regional soft t issue gas and swelling is present, not unexpected postoperative. IMPRESSION: Status post placement of right total knee arthroplasty. No evidence of complication.
[2023-09-12] MEDS: SENNOSIDES-DOCUSATE SODIUM 1 EACH TAB PO SCH (20:55)
[2023-09-13] MEDS: SODIUM CHLORIDE 0.9% 1,000 ML IV SCH ×2 (03:36→07:27)
[2023-09-13] MEDS: Acetaminophen-Codeine 300-30mg TAB PO PRN ×2 (04:24→20:47)
[2023-09-13] MEDS: RIVAROXABAN 10 MG TAB PO SCH (08:34)
--- NOTE | 2023-09-13 08:38 | P.PN ---
Progress Note - Text Progress Note Date: 09/13/23 (0651) Anesthesiology Postop day 1 status post total knee arthroplasty with adductor canal catheter. Patient doing well. VAS 1 out of 10. Gross strength intact in lower extremity. Denies fever. Denies alterations in sensorium. Catheter site intact. Heart regular rate Lungs nonlabored Abdomen nondistended Assessment: Postop day 1 status post total knee arthroplasty with adductor canal catheter Plan: 1.All questions answered. Maintain catheter 2 more days with patient removal at home. Instructions to be given at discharge. 2.This note was dictated using Fobbler software. Please be advised there is a potential for misspellings or errors in inspector and mender.
[2023-09-13] MEDS ORDERED: TURMERIC PO SCH (09:00)
[2023-09-13] MEDS ORDERED: NON FORMULARY DRUG (Ubidecarenone [Co Q-10] 400 MG Capsule) PO SCH (09:00)
[2023-09-13] MEDS ORDERED: ATORVASTATIN 10 MG TAB PO SCH ×2 (09:00→21:00)
[2023-09-13] MEDS: LOSARTAN 50 MG TAB PO SCH (09:28)
[2023-09-13] MEDS: FAMOTIDINE 20 MG TAB PO SCH ×2 (09:28→20:38)
[2023-09-13] MEDS: CHOLECALCIFEROL 125 MCG (5000 IU) TABLET PO SCH (09:28)
[2023-09-13] MEDS: DILTIAZEM CD 180 MG CAP.ER.24H PO SCH (09:28)
[2023-09-13] MEDS: OXYBUTYNIN XL 5 MG TAB.ER.24 PO SCH (09:29)
[2023-09-13] MEDS: ZINC SULFATE 220 MG CAP PO SCH (09:30)
--- NOTE | 2023-09-13 09:59 | P.PN ---
Subjective Progress Note Date: 09/13/23 This is an 83-year-old fe male who is status post right total knee arthroplasty. This is postoperative day #1 And patient is seen and evaluated at bedside with Dr. Norman Martínez. Patient states that her pain is well-controlled and she was able to work with physical therapy today. Patient states that she lives alone, but has family nearby. Patient denies any fever/chills, chest pain, shortness breath, abdominal pain, numbness, weakness or tingling. Objective - Vital Signs Vital signs: Vital Signs Temp 97.7 F 09/13/23 07:15 Pulse 66 09/13/23 08:00 Resp 18 09/13/23 08:00 BP 158/83 09/13/23 07:15 Pulse Ox 97 09/13/23 07:15 FiO2 Intake & Output 09/12/23 09/13/23 09/13/23 18:59 06:59 18:59 Intake Total 651 240 Output Total 30 Balance 621 240 Weight 92.3 kg Intake: IV 651 Oral 240 Output: Estimated Blood Loss 30 Other: # Voids 5 0 1 # Bowel Movements 1 - Exam Vital signs are stable. Patient is in no acute distress and is alert and oriented 3. Calf is soft and nontender to palpation. Dressing is clean, dry, and intact. Patient has full foot and ankle motion without pain or difficulty. Sensation intact. Neurovascular status and circulatory status are intact. Assessment and Plan (1) Osteoarthritis of right knee Current Visit: Yes Status: Acute Code(s): M17.11 - UNILATERAL PRIMARY OSTEOARTHRITIS, RIGHT KNEE SNOMED Code(s): 837835254254804 (2) S/P total knee arthroplasty Current Visit: Yes Status: Acute Code(s): Z96.659 - PRESENCE OF UNSPECIFIED ARTIFICIAL KNEE JOINT SNOMED Code(s): 8644047102699 Plan: #1 Continue with routine postoperative care and pain control, leave dressing in place for 7 days. #2 Anticoagulation with Xarelto. #3 Physical therapy today. #4 Appreciate input from internal medicine. #5 Anticipate discharge home with home care or to ECF in the next 24-48 hours.
[2023-09-13] MEDS: LACTATED RINGERS 1,000 ML IV SCH (10:37)
[2023-09-13] MEDS: LEVOTHYROXINE 100 MCG TAB PO SCH (10:38)
[2023-09-13 11:38] LABS: Basophils # (A) 0.01 X 10*3/uL (0.00-0.10); Basophils % (A) 0.1 %; Eosinophils # (A) 0 X 10*3/uL (0.04-0.35); Eosinophils % (A) 0 %; HCT 35.7 % (37.2-46.3); HGB 12.3 g/dL (12.0-15.0); Lymphocytes % (A) 8.3 %; MCH 32.1 pg (27.0-32.0); MCHC 34.5 g/dL (32.0-37.0); MCV 93.2 FL (80.0-97.0); Mean Platelet Volume 9.9 FL (9.5-12.2); Monocytes # (A) 0.44 X 10*3/uL (0.20-1.00); Monocytes % (A) 4.6 %; NRBC Per 100 WBC 0 X 10*3/uL (0.00-0.01); Neutrophils % (A) 86.8 %; Platelet Count 150 X 10*3/uL (140-440); RBC 3.83 X 10*6/uL (4.10-5.20); RDW 11.9 % (11.5-14.5); WBC 9.67 X 10*3/uL (4.50-10.00)
--- NOTE | 2023-09-13 14:20 | P.CONS ---
History of Present Illness - Reason for Consult Consult date: 09/13/23 Medical management, status post right knee arthroplasty - History of Present Illness This is a 83-year-old female who was admitted under orthopedic services and is status post right total knee arthroplasty and is postop day #1. Patient follows with Dr. Viera in the outpatient setting with past medical history of GERD, h yperlipidemia, hypertension, osteoarthritis, skin disorder, thyroid disorder. Patient reports she is never been a smoker denies any alcohol or illicit drug use. Patient was able to work with physical therapy and feels her pain is currently managed on current regimen. Patient does have incentive spirometer at the bedside and has encouraged to continue using at least 10 times every hour while awake. Patient return demonstrated excellent use of the incentive spirometer and encouraged her to continue to do so. Patient is afebrile with no reports of chest pain or shortness of breath. Home medications have been reviewed and resumed as appropriate. Patient has been started on Xarelto per orthopedics. Patient reports no bowel movement as of yet and reports has not passed much gas. Patient is voiding with no difficulties. REVIEW OF SYSTEMS: CONSTITUTIONAL: No fever, no malaise, no fatigue. HEENT: No recent visual problems or hearing problems. Denied any sore throat. CARDIOVASCULAR: No chest pain, orthopnea, PND, no palpitations, no syncope. PULMONARY: No shortness of breath, no cough, no hemoptysis. GASTROINTESTINAL: No diarrhea, no nausea, no vomiting, no abdominal pain. NEUROLOGICAL: No headaches, no weakness, no numbness. HEMATOLOGICAL: Denies any bleeding or petechiae. GENITOURINARY: Denies any burning micturition, frequency, or urgency. MUSCULOSKELETAL/RHEUMATOLOGICAL: Denies any joint pain, swelling, or any muscle pain. Reports some right knee pain ENDOCRINE: Denies any polyuria or polydipsia. The rest of the 14-point review of systems is negative. PHYSICAL EXAMINATION: GENERAL: The patient is alert and oriented x3, not in any acute distress. Well d eveloped, well nourished. Obese HEENT: Pupils are round and equally reacting to light. EOMI. No scleral icterus. No conjunctival pallor. Normocephalic, atraumatic. No pharyngeal erythema. No thyromegaly. CARDIOVASCULAR: S1 and S2 present. No murmurs, rubs, or gallops. PULMONARY: Chest is clear to auscultation, no wheezing or crackles. ABDOMEN: Soft, obese, nontender, nondistended, normoactive bowel sounds. No palpable organomegaly. MUSCULOSKELETAL: No joint swelling or deformity. EXTREMITIES: No cyanosis, clubbing, or pedal edema. Right surgical knee dressing is dry and intact with no significant swelling and no erythema noted NEUROLOGICAL: Gross neurological examination did not reveal any focal deficits. Diffusely weak SKIN: No rashes. Assessment: Status post right total knee arthroplasty, postop day 1 History of GERD History of hyperlipidemia Hypertension history Osteoarthritis history Obesity with a BMI of 36.0 Thyroid disorder GI prophylaxis DVT prophylaxis Full code Plan: Recommend to continue with current medications and management with pain management and DVT prophylaxis per orthopedics. Patient has been started on Xarelto for DVT prophylaxis Home medications reviewed and resumed as appropriate Patient with incentive spirometer at the bedside and recommend to continue using at least 10 times every hour while awake Patient was on gentle hydration and will discontinue Encouraged increase activity as tolerated and continued PT/OT therapy evaluation Patient would like to go to rehab for continued strength and mobility as she reports she lives alone and is somewhat nervous to go home alone having just undergone surgery. Patient reports she had a previous knee surgery done 2 years ago and went home and felt she received an appropriate rehab in the home s etting. Case management is following and has placed referrals which are pending at this time. Insurance to decide if authorization is approved We will continue to follow with orthopedics during hospitalization. Thank you kindly for this consultation. The impression and plan of care has been dictated by Cristiana Beach, Nurse Practitioner as directed. Dr. Aaliyah MD I have performed a history and examination and MDM of this patient, discussed the same with the dictator, and agree with the dictator's assessment and plan as written ,documented as a scribe. Based on total visit time, I have performed more than 50% of the visit. Past Medical History Past Medical History: GERD/Reflux, Hyperlipidemia, Hypertension, Osteoarthritis (OA), Skin Disorder, Thyroid Disorder Additional Past Medical History / Comment(s): chronic sinus problems, mild urinary urgency/frequency, small quarter size burn priscilla from hot tea on abdomen- not open or blistered, esophageal motility issues, has dysphagia to pills larger than synthroid-does break up other pills that are larger History of Any Multi-Drug Resistant Organisms: None Reported Past Surgical History: Breast Surgery, Joint Replacement, Orthopedic Surgery Additional Past Surgical History / Comment(s): L rotator cuff, cysts removed from right breast. left knee replaced, right knee replacement Past Anesthesia/Blood Transfusion Reactions: Postoperative Nausea & Vomiting (PONV) Additional Past Anesthesia/Blood Transfusion Reaction / Comm: Hx difficult to arouse. Past Psychological History: No Psychological Hx Reported Smoking Status: Never smoker Past Alcohol Use History: None Reported Past Drug Use History: None Reported - Past Family History Mother Family Medical History: Cancer Medications and Allergies Home Medications Medication Instructions Recorded Confirmed Type Atorvastatin Calcium [Lipitor] 10 mg PO MOTUWETHFR 11/11/15 09/05/23 History Levothyroxine Sodium 100 mcg PO DAILY 03/04/19 09/05/23 History Famotidine [Pepcid] 20 mg PO BID 03/22/22 09/12/23 History Tolterodine ER [Detrol LA] 2 mg PO DAILY 03/22/22 09/05/23 History Ubidecarenone [Co Q-10] 400 mg PO DAILY 03/22/22 09/05/23 History Zinc 50 mg PO DAILY 03/22/22 09/05/23 History Cholecalciferol [Vitamin D3 (125 125 mcg PO DAILY 06/24/22 09/05/23 History Mcg = 5000 Iu)] Losartan Potassium [Cozaar] 100 mg PO DAILY 09/05/23 09/05/23 History dilTIAZem HCL [dilTIAZem HCL 24Hr 180 mg PO DAILY 09/05/23 09/05/23 History ER (CD)] Loteprednol Etabonate [Alrex] 1 drop BOTH EYES HS 09/06/23 09/06/23 History Turmeric Liquid 1 dropper PO DAILY 09/06/23 History Acetaminophen-Codeine 300-30mg 1 - 2 tab PO Q6H PRN #30 tablet 09/12/23 Rx [Tylenol #3] Rivaroxaban [Xarelto] 10 mg PO DAILY #30 tab 09/12/23 Rx Sennosides [Senokot] 2 tab PO DAILY PRN #60 tablet 09/12/23 Rx Allergies Allergy/AdvReac Type Severity Reaction Status Date / Time clarithromycin [From Biaxin] Allergy Unknown Verified 09/12/23 09:58 Penicillins Allergy Rash/Hives Verified 09/12/23 09:58 shellfish derived Allergy Anaphylaxis Verified 09/12/23 09:58 Sulfa (Sulfonamide Allergy Anaphylaxis Verified 09/12/23 09:58 Antibiotics) acetaminophen [From [place]] AdvReac Confusion Verified 09/12/23 10:27 aspirin AdvReac Nausea Verified 09/12/23 10:27 hydrocodone [From [place]] AdvReac Confusion Verified 09/12/23 10:27 Physical Exam Vitals: Vital Signs Temp Pulse Pulse Resp BP Pulse Ox 09/13/23 07:15 97.7 F 66 18 158/83 97 09/13/23 01:44 97.8 F 77 16 152/80 95 09/12/23 20:00 97.5 F L 65 18 160/78 98 09/12/23 15:52 97.5 F L 63 18 150/75 99 09/12/23 15:00 56 L 16 138/60 98 09/12/23 14:30 55 L 16 144/62 98 09/12/23 14:00 59 L 16 129/62 98 09/12/23 13:45 54 L 16 128/50 98 09/12/23 13:30 53 L 16 126/53 98 09/12/23 13:15 53 L 16 126/58 98 09/12/23 12:57 97 F L 58 L 16 123/57 98 09/12/23 11:12 61 16 161/67 98 09/12/23 10:04 97.4 F L 71 16 177/76 97 Intake and Output 09/12/23 09/13/23 09/13/23 22:59 06:59 14:59 Intake Total 240 Balance 240 Intake: Oral 240 Other: # Voids 5 0 1 # Bowel Movements 1 Weight 92.3 kg Results CBC & Chem 7: 09/13/23 05:26
[2023-09-13] MEDS: SENNOSIDES-DOCUSATE SODIUM 1 EACH TAB PO SCH (20:38)
[2023-09-13] MEDS ORDERED: prednisoLONE ACETATE 1% OPHTH DROPS 5 ML BTL BOTH EYES SCH (21:00)
[2023-09-14] MEDS: LACTATED RINGERS 1,000 ML IV SCH (04:58)
[2023-09-14] MEDS: LEVOTHYROXINE 100 MCG TAB PO SCH (06:35)
[2023-09-14 07:43] VITALS: PULSE 63
[2023-09-14] MEDS: CHOLECALCIFEROL 125 MCG (5000 IU) TABLET PO SCH (08:24)
[2023-09-14] MEDS: LOSARTAN 50 MG TAB PO SCH (08:24)
[2023-09-14] MEDS: FAMOTIDINE 20 MG TAB PO SCH (08:24)
[2023-09-14] MEDS: DILTIAZEM CD 180 MG CAP.ER.24H PO SCH (08:25)
[2023-09-14] MEDS: ZINC SULFATE 220 MG CAP PO SCH (08:25)
[2023-09-14] MEDS: RIVAROXABAN 10 MG TAB PO SCH (08:25)
[2023-09-14] MEDS: OXYBUTYNIN XL 5 MG TAB.ER.24 PO SCH (08:25)
[2023-09-14] MEDS: Acetaminophen-Codeine 300-30mg TAB PO PRN (12:59)
--- NOTE | 2023-09-14 13:42 | P.DS ---
Providers Date of admission: 09/12/23 13:07 Expected date of discharge: 09/14/23 Attending physician: Norman Martínez Consults: 09/12/23 13:07 Consult Physician Routine Consulting Provider: Palmer Saunders Consult Reason/Comments: medical management Do you want consulting provider notified?: Yes Primary care physician: Naveed Viera - Discharge Diagnosis(es) (1) Osteoarthritis of right knee Current Visit: Yes Status: Acute (2) S/P total knee arthroplasty Current Visit: Yes Status: Acute Hospital Course: This is a 83-year-old female with known history of degenerative arthritis of the right knee. The patient presented for evaluation as an outpatient. After discussion and consideration patient elects to proceed with total knee arthroplasty. The patient is seen preoperatively by Dr. Martínez and medically cleared for surgery by their primary care physician. Patient is admitted to [facility] on 09/12/2023 for total knee arthroplasty. The procedure is performed without complication or sequelae. The patient is doing well postoperatively. Labs and vital signs are stable on day of discharge. On day of discharge patient's knee incision is healing well. There is minimal erythema. There is no drainage noted at this time. There is minimal soft tissue swelling to the knee. Patient has full foot and ankle motion without difficulty or pain. Calf is soft and nontender to palpation. Neurovascular status to the right lower extremity is intact. Patient is discharged home in good condition. Please see med rec for accurate list of home medications. Plan - Discharge Summary Discharge Rx Participant: No New Discharge Prescriptions: New Rivaroxaban [Xarelto] 10 mg PO DAILY #30 tab Sennosides [Senokot] 2 tab PO DAILY PRN #60 tablet PRN Reason: Constipation Acetaminophen-Codeine 300-30mg [Tylenol #3] 1 - 2 tab PO Q6H PRN #30 tablet PRN Reason: Pain Continue Atorvastatin Calcium [Lipitor] 10 mg PO MOTUWETHFR Levothyroxine Sodium 100 mcg PO DAILY Tolterodine ER [Detrol LA] 2 mg PO DAILY Zinc 50 mg PO DAILY Losartan Potassium [Cozaar] 100 mg PO DAILY Turmeric Liquid 1 dropper PO DAILY Loteprednol Etabonate [Alrex] 1 drop BOTH EYES HS Famotidine [Pepcid] 20 mg PO BID Ubidecarenone [Co Q-10] 400 mg PO DAILY Cholecalciferol [Vitamin D3 (125 Mcg = 5000 Iu)] 125 mcg PO DAILY dilTIAZem HCL [dilTIAZem HCL 24Hr ER (CD)] 180 mg PO DAILY Discharge Medication List Atorvastatin Calcium [Lipitor] 10 mg PO MOTUWETHFR 11/11/15 [History] Levothyroxine Sodium 100 mcg PO DAILY 03/04/19 [History] Famotidine [Pepcid] 20 mg PO BID 03/22/22 [History] Tolterodine ER [Detrol LA] 2 mg PO DAILY 03/22/22 [History] Ubidecarenone [Co Q-10] 400 mg PO DAILY 03/22/22 [History] Zinc 50 mg PO DAILY 03/22/22 [History] Cholecalciferol [Vitamin D3 (125 Mcg = 5000 Iu)] 125 mcg PO DAILY 06/24/22 [History] Losartan Potassium [Cozaar] 100 mg PO DAILY 09/05/23 [History] dilTIAZem HCL [dilTIAZem HCL 24Hr ER (CD)] 180 mg PO DAILY 09/05/23 [History] Loteprednol Etabonate [Alrex] 1 drop BOTH EYES HS 09/06/23 [History] Turmeric Liquid 1 dropper PO DAILY 09/06/23 [History] Acetaminophen-Codeine 300-30mg [Tylenol #3] 1 - 2 tab PO Q6H PRN #30 tablet 09/12/23 [Rx] Rivaroxaban [Xarelto] 10 mg PO DAILY #30 tab 09/12/23 [Rx] Sennosides [Senokot] 2 tab PO DAILY PRN #60 tablet 09/12/23 [Rx] Follow up Appointment(s)/Referral(s): Naveed Viera MD [Primary Care Provider] - [facility] [NON-STAFF] - As Needed Norman Martínez DO [Doctor of Osteopathic Medicine] - 09/25/23 2:25 pm (With Shauna) Activity/Diet/Wound Care/Special Instructions: Weightbearing as tolerated with a walker. CPM 5-6h daily as tolerated. Leave dressing intact. Dressing may be removed by home care nurse or by patient in 7 days. Then change dressing twice daily until follow up. May shower with initial dressing intact and after removal. If dressing become saturated, please remove. Recommend use of compression stockings daily until follow up to help prevent swelling and blood clots. May remove at night before sleeping. Please take Xarelto for 30 days postoperatively to help prevent blood clots. Please follow up with [facility] and call with any questions or concerns, . Discharge Disposition: HOME WITH HOME HEALTH SERVICES
[2023-09-14 15:49] VITALS: BP 137/68; RESP 18; TEMP 98.4
--- NOTE | 2023-09-17 11:34 | P.PN ---
Subjective Progress Note Date: 09/14/23 - Reason for Consult Consult date: 09/13/23 Medical management, status post right knee arthroplasty - History of Present Illness This is a 83-year-old female who was admitted under orthopedic services and is status post right total knee arthroplasty and is postop day #1. Patient follows with Dr. Viera in the outpatient setting with past medical history of GERD, hyperlipidemia, hypertension, osteoarthritis, skin disorder, thyroid disorder. Patient reports she is never been a smoker denies any alcohol or illicit drug use. Patient was able to work with physical therapy and feels her pain is currently managed on current regimen. Patient does have incentive spirometer at the bedside and has encouraged to continue using at least 10 times every hour while awake. Patient return demonstrated excellent use of the incentive spirometer and encouraged her to continue to do so. Patient is afebrile with no reports of chest pain or shortness of breath. Home medications have been reviewed and resumed as appropriate. Patient has been started on Xarelto per orthopedics. Patient reports no bowel movement as of yet and reports has not passed much gas. Patient is voiding with no difficulties. 09/14/2023 Patient seen in follow-up this morning reports to have been working with physical therapy and did well and initially attempting to go to rehab although patient insurance requesting peer to peer and was not approved and patient will be going home with home care. Patient is currently afebrile with no reported chest pain or shortness of breath. Patient reports her knee pain is controlled although tender on current regimen. Patient does have a walker and reports she feels she would do okay at home. Patient is medically stable for discharge once cleared by orthopedics. Review of systems: Constitutional: No reports of fatigue, fever, or chills Cardiovascular: No reports of chest pain or palpitations Respiratory: No reports of shortness of breath or cough GI: No reports of nausea, vomiting, or diarrhea : No reports of dysuria or retention Neurovascular: No reports of weakness or numbness, reports some right knee pain All medications have been reviewed PHYSICAL EXAMINATION: GENERAL: The patient is alert and oriented x3, not in any acute distress. Well developed, well nourished. Obese HEENT: Pupils are round and equally reacting to light. EOMI. No scleral icterus. No conjunctival pallor. Normocephalic, atraumatic. No pharyngeal erythema. No thyromegaly. CARDIOVASCULAR: S1 and S2 present. No murmurs, rubs, or gallops. PULMONARY: Chest is clear to auscultation, no wheezing or crackles. ABDOMEN: Soft, obese, nontender, nondistended, normoactive bowel sounds. No palpable organomegaly. MUSCULOSKELETAL: No joint swelling or deformity. EXTREMITIES: No cyanosis, clubbing, or pedal edema. Right surgical knee dressing is dry and intact with no significant swelling and no erythema noted NEUROLOGICAL: Gross neurological examination did not reveal any focal deficits. Diffusely weak SKIN: No rashes. Assessment: Status post right total knee arthroplasty, postop day 2 History of GERD History of hyperlipidemia Hypertension history Osteoarthritis history Obesity with a BMI of 36.0 Thyroid disorder GI prophylaxis DVT prophylaxis Full code Plan: Recommend to continue with current medications and management with pain management and DVT prophylaxis per orthopedics. Patient has been started on Xarelto for DVT prophylaxis Home medications reviewed and resumed as appropriate Patient with incentive spirometer at the bedside and recommend to continue using at least 10 times every hour while awake and include by taking the incentive spirometer at home and continuing use. Patient was seen and evaluated by physical therapy again today and did relatively well and will not qualify for rehab and will be going home with home care arranged. Case management following working on discharge planning. Patient is medically stable once cleared by orthopedics for discharge home today. We will continue to follow with orthopedics during hospitalization. Thank you kindly for this consultation. The impression and plan of care has been dictated by Cristiana Beach, Nurse Practitioner as directed. Dr. Aaliyah MD I have performed a history and examination and MDM of this patient, discussed the same with the dictator, and agree with the dictator's assessment and plan as written ,documented as a scribe. Based on total visit time, I have performed more than 50% of the visit. Objective - Vital Signs Vital signs: Vital Signs Temp 98.0 F 09/14/23 07:20 Pulse 63 09/14/23 07:20 Resp 17 09/14/23 07:20 BP 173/83 09/14/23 07:20 Pulse Ox 96 09/14/23 07:20 FiO2 Intake & Output 09/13/23 09/14/23 09/14/23 18:59 06:59 18:59 Intake Total 200 Balance 200 Intake: Oral 200 Other: # Voids 3 6 1 # Bowel Movements 1 - Labs CBC & Chem 7: 09/13/23 05:26 Labs: Abnormal Lab Results - Last 24 Hours (Table) 09/13/23 Range/Units 05:26 RBC 3.83 L (4.10-5.20) X 10*6/uL Hct 35.7 L (37.2-46.3) % MCH 32.1 H (27.0-32.0) pg Neutrophils # 8.40 H (1.80-7.70) X 10*3/uL Lymphocytes # 0.80 L (0.90-5.00) X 10*3/uL Eosinophils # 0 L (0.04-0.35) X 10*3/uL
== END 2023-09-14 18:43 | disposition home health service (06) | DRG 470 ==
LOC: OR 09:33 → 4SSUR 13:07 → UNDODISIN 09-14 16:09
PROVIDERS: ADMIT Orthopaedic Surgery; ATTEND Orthopaedic Surgery
PROC: 0SRC069 Replacement of Right Knee Joint with Oxidized Zirconium on Polyethylene Synthetic Substitute, Cemented, Open Approach (ICD-10-PCS; principal; 2023-09-12 11:10)
DX: M17.11 Unilateral primary osteoarthritis, right knee (principal); E03.9 Hypothyroidism, unspecified; I10 Essential (primary) hypertension; E66.9 Obesity, unspecified; Z68.36 Body mass index [BMI] 36.0-36.9, adult; Z28.310 Unvaccinated for COVID-19; E78.5 Hyperlipidemia, unspecified; K21.9 Gastro-esophageal reflux disease without esophagitis; R39.15 Urgency of urination; L98.9 Disorder of the skin and subcutaneous tissue, unspecified; Z79.890 Hormone replacement therapy; Z79.899 Other long term (current) drug therapy; Z96.652 Presence of left artificial knee joint; Z88.1 Allergy status to other antibiotic agents; Z88.5 Allergy status to narcotic agent; Z88.0 Allergy status to penicillin; Z88.2 Allergy status to sulfonamides
CPT/HCPCS: 64448; 64999; 85025

== ENCOUNTER → 2024-09-13 | Outpatient (CLI) | payer MEDICARE ==
--- NOTE | 2024-09-16 13:34 | MM ---
Reason for Exam: Screening (asymptomatic). Last mammogram was performed 1 year(s) and 1 month(s) ago. Patient History: Menarche at age 14. First Full-Term at age 25. Postmenopausal. Patient used Hormonal Contraceptives for 8 years. Maternal aunt had breast cancer. Mother had breast cancer. Risk Values: Mrata 5 year model risk: 3.0%. NCI Lifetime model risk: 4.0%. Prior Study Comparison: 07/14/2022 Bilateral Screening Mammogram, [facility]. 07/28/2023 Bilateral Screening Mammogram, [facility]. Tissue Density: The breasts are heterogeneously dense, which may obscure small masses. Findings: Analyzed By CAD. Asymmetric prominent tissue upper outer aspect right breast is stable. There is no suspicious group of microcalcifications or new suspicious mass in either breast. Overall Assessment: Negative, BI-RAD 1 Management: Screening Mammogram of both breasts in 1 year. . Patient should continue monthly self-breast exams. A clinical breast exam by your physician is recommended on an annual basis. This exam should not preclude additional follow-up of suspicious palpable abnormalities. Note on Marta scores and lifetime risk: 1. A Marta score greater than 3% is considered moderate risk. If this is the case, consider specialist referral to assess eligibility for a risk reducing agent. 2. If overall lifetime risk for the development of breast cancer is 20% or higher, the patient may qualify for future screening with alternating mammogram and breast MRI. [facility], , 09/16/2024 1:31 PM. Electronically signed and approved by: Bimal Andrade M.D.
== END | disposition home or self-care (01) ==
LOC: RADMAMWWP 15:57
PROVIDERS: ATTEND Internal Medicine Geriatric Medicine
DX: Z12.31 Encounter for screening mammogram for malignant neoplasm of breast (principal); R92.333 Mammographic heterogeneous density, bilateral breasts; Z78.0 Asymptomatic menopausal state; Z80.3 Family history of malignant neoplasm of breast
CPT/HCPCS: 77063; 77067

== ENCOUNTER → 2024-10-16 | Outpatient (CLI) | payer MEDICARE ==
--- NOTE | 2024-10-16 15:14 | XR ---
EXAMINATION TYPE: XR ankle complete RT DATE OF EXAM: 10/16/2024 COMPARISON: NONE HISTORY: Pain TECHNIQUE: Frontal, lateral and oblique images of the right ankle are obtained. FINDINGS: There is no acute fracture/dislocation evident. The joint spaces appear within normal limi ts. Ankle mortise is intact. Diffuse soft tissue swelling of the visualized lower extremity. Tiny pos terior calcaneal enthesophyte with more prominent plantar calcaneal enthesophytes. IMPRESSION: 1. No acute fracture or dislocation. 2. Diffuse soft tissue swelling. [facility], , 10/16/2024 3:12 PM
== END | disposition home or self-care (01) ==
LOC: RADXRMAIN 14:57
PROVIDERS: ATTEND Nurse Practitioner Family
DX: M25.571 Pain in right ankle and joints of right foot (principal); M79.89 Other specified soft tissue disorders